=== PATIENT | male | born 1955 | race Hispanic/Latino ===

== ENCOUNTER 2016-07-30 21:12 | Inpatient (IN) | payer MEDICAID ==
[2016-07-30] MEDS ORDERED: Albuterol-Ipratrop 3 mg / 0.5 (3 ml) UD INH STA (21:40)
--- NOTE | 2016-07-30 21:56 | ED PDOC ---
HPI: General Adult Time Seen by Provider: 07/30/16 21:53 Chief Complaint (Nursing): GI Problem Chief Complaint (Provider): vomiting History Per: Patient (61 y/o male h/o CVA 7 years ago with 2 [facility] here for choking/vomiting and subsequently shortness of breath. Patient uses walker and bedside urinal and sister visits him at time.) Past Medical History Reviewed: Historical Data, Nursing Documentation, Vital Signs Vital Signs: Last Vital Signs Temp 99 F 07/30/16 21: Pulse 69 07/30/16 21:17 Resp 18 07/30/16 21:17 BP 150/76 07/30/16 21: Pulse Ox 96 07/30/16 21:56 - Medical History PMH: CVA (w/residual right-sided hemiparesis), Diabetes, HTN - Family History Family History: States: Hypertension - Home Medications Home Medications: Ambulatory Orders Medication Instructions Recorded Ondansetron [Zofran Tab] 4 mg PO Q8H #15 tab 03/17/16 ALPRAZolam [Xanax] 0.25 mg PO HS #14 tab 03/20/16 ARIPiprazole [Abilify] 5 mg PO DAILY #14 tab 03/20/16 Amoxicillin/Clavulanate [Augmentin 1 tab PO BID #9 tab 03/20/16 875 MG-125 MG] Citalopram [celEXA] 40 mg PO DAILY #30 tab 03/20/16 Dipyridamole [Persantine] 25 mg PO BID #60 tab 03/20/16 Fenofibrate [Tricor] 145 mg PO DAILY #30 tab 03/20/16 Insulin Detemir [Levemir] 30 units SC HS #30 vial 03/20/16 Lactobacillus Acidophilus [Bacid 1 cap PO BID #14 cap 03/20/16 Acidophilus] Metoprolol Succinate [Toprol XL] 25 mg PO BID #30 tab 03/20/16 OXcarbazepine [Trileptal] 600 mg PO BID #20 tab 03/20/16 Pantoprazole [Protonix EC Tab] 40 mg PO DAILY #14 ect 03/20/16 traZODone [Desyrel] 25 mg PO HS #14 tab 03/20/16 - Allergies Allergies/Adverse Reactions: Allergies Allergy/AdvReac Type Severity Reaction Status Date / Time FISH Allergy RASH Verified 07/30/16 21:22 Review of Systems ROS Statement: Except As Marked, All Systems Reviewed And Found Negative Respiratory: Positive for: Shortness of Breath Physical Exam - Reviewed Nursing Documentation Reviewed: Yes Vital Signs Reviewed: Yes - Physical Exam Appears: Positive for: Well, Non-toxic, No Acute Distress Head Exam: Positive for: ATRAUMATIC, NORMAL INSPECTION, NORMOCEPHALIC Skin: Positive for: Normal Color, Warm, DRY Eye Exam: Positive for: EOMI, Normal appearance, PERRL ENT: Positive for: Normal ENT Inspection Neck: Positive for: Normal, Painless ROM Cardiovascular/Chest: Positive for: Regular Rate, Rhythm Respiratory: Positive for: CNT, Normal Breath Sounds Gastrointestinal/Abdominal: Positive for: Normal Exam, Bowel Sounds, Soft Back: Positive for: Normal Inspection Extremity: Positive for: Normal ROM Neurologic/Psych: Positive for: Alert, Oriented - Laboratory Results Result Diagrams: 07/30/16 22:14 07/30/16 22:14 - ECG O2 Sat by Pulse Oximetry: 96 - Progress ED Course And Treament: Duoneb x 1 dose BC x 2 CXR: ? HAZY RIGHT UPPER BORDER UNASYN 3 GM IV X 1 DOSE D/W DR. MUELLER Disposition - Clinical Impression Clinical Impression: Aspiration pneumonia - Patient ED Disposition Is Patient to be Admitted: Yes - Disposition Disposition Time: 01:33 Condition: FAIR - Pt Status Changed To: Hospital Disposition Of: Observation
[2016-07-30] MEDS ORDERED: Ampicillin/Sulbactam 3 GM in Sodium Chloride 0.9% 100 ML IVPB ONE (22:01)
[2016-07-30 22:17] LABS: BASO # 0.1 K/uL (0.0-0.2); BASO % 0.9 % (0.0-2.0); EOS # 0.4 K/uL (0.0-0.7); EOS % 4.1 % (0.0-4.0); HEMATOCRIT 43.6 % (35.0-51.0); LYMPH # 1.2 K/uL (1.0-4.3); LYMPH % 10.8 % (20.0-40.0); MEAN CELL VOLUME 82.6 fl (80.0-94.0); MEAN CORPUSCULAR HEMOGLOBIN 27.2 pg (27.0-31.0); MONO # 0.8 K/uL (0.0-0.8); NEUT # 8.5 K/uL (1.8-7.0); NEUT % 77.2 % (50.0-75.0); NRBC % 0.1 % (0.0-0.0)
[2016-07-30 22:27] LABS: ALB/GLOB RATIO 1.7 (1.0-2.1); ALKALINE PHOSPHATASE 48 U/L (38-126); ALT/SGPT 30 U/L (21-72); AST/SGOT 14 U/L (17-59); BILIRUBIN,TOTAL 0.4 mg/dl (0.2-1.3); BLOOD UREA NITROGEN 24 mg/dl (9-20); CALCIUM 9.6 mg/dL (8.4-10.2); CARBON DIOXIDE 24 mmol/L (22-30); CHLORIDE 105 mmol/L (98-107); GFR AFRICAN-AMERICAN > 60; GLUCOSE,RANDOM 196 mg/dL (75-110); POTASSIUM 3.8 MMOL/L (3.6-5.0); SODIUM 143 mmol/l (132-148); TOTAL PROTEIN 7.2 G/DL (6.3-8.2)
[2016-07-30] MEDS ORDERED: Sodium Chloride 0.9% 1,000 ML IV STA (22:49)
[2016-07-31] MEDS ORDERED: Ampicillin/Sulbactam 3 GM in Sodium Chloride 0.9% 100 ML IVPB STA (04:06)
[2016-07-31 04:45] LABS: RBC URINE 3 /hpf (0-3); URINE BILIRUBIN NEGATIVE (NEGATIVE); URINE BLOOD NEGATIVE (NEGATIVE); URINE COLOR YELLOW (YELLOW); URINE GLUCOSE (UA) >=500 mg/dL (Normal); URINE KETONE NEGATIVE (NEGATIVE); URINE LEUKOCYTE ESTERASE NEG Leu/uL (Negative); URINE PROTEIN NEGATIVE (NEGATIVE); WBC URINE < 1 /hpf (0-5)
[2016-07-31] MEDS ORDERED: Albuterol-Ipratrop 3 mg / 0.5 (3 ml) UD INH PRN (05:42)
[2016-07-31] MEDS ORDERED: Potassium Ch 20mEq in D5-1/2NS 1,000 ML IV SCH (09:00)
[2016-07-31] MEDS ORDERED: Dextrose 50% SYRINGE Inj (50 ml) IV PRN (09:01)
[2016-07-31] MEDS ORDERED: Glucagon Recombinant 1 mg Inj IM PRN (09:01)
--- NOTE | 2016-07-31 10:12 | RAD ---
HISTORY: r/o pneumonia COMPARISON: 03/17/2016 FINDINGS: LUNGS: The lungs are well inflated and clear. PLEURA: No significant pleural effusion identified, no pneumothorax apparent. CARDIOVASCULAR: Normal. OSSEOUS STRUCTURES: No significant abnormalities. VISUALIZED UPPER ABDOMEN: Normal. OTHER FINDINGS: None. IMPRESSION: No active pulmonary disease.
[2016-07-31] MEDS: Enoxaparin 40 mg Syringe SC SCH (10:17)
[2016-07-31] MEDS: Insulin Regular 100 units/ml SC SCH ×4 (10:17→22:43)
[2016-07-31] MEDS: Pantoprazole 40 mg EC Tab PO SCH (10:18)
[2016-07-31] MEDS: Metoprolol Succinate 25 mg XL Tab PO SCH ×2 (10:18→19:57)
[2016-07-31] MEDS ORDERED: Ampicillin/Sulbactam 3 GM in Sodium Chloride 0.9% 100 ML IVPB SCH (13:00)
[2016-07-31] MEDS: Lactobacillus Acidophilus 500 MU Cap PO SCH ×2 (14:27→17:02)
--- NOTE | 2016-07-31 16:49 | RAD ---
HISTORY: r/o aspiration PNA COMPARISON: 07/30/2016 TECHNIQUE: Chest PA and lateral FINDINGS: LUNGS: There is interval development of consolidation in the right upper lobe. The left lung is clear. PLEURA: No significant pleural effusion identified. No pneumothorax apparent. CARDIOVASCULAR: Normal. OSSEOUS STRUCTURES: No significant abnormalities. VISUALIZED UPPER ABDOMEN: Normal. OTHER FINDINGS: None. IMPRESSION: Interval development of right upper lobe consolidation which in the appropriate clinical setting could represent aspiration pneumonitis. Follow-up to resolution is advised.
--- NOTE | 2016-07-31 18:10 | CARD ---
APPROVED REPORT EKG Measurement Heart [id number] [place] [id number] [id number] <Conclusion> Normal sinus rhythm Left anterior fascicular block Abnormal ECG
[2016-07-31] MEDS: Ampicillin/Sulbactam 3 GM in Sodium Chloride 0.9% 100 ML IVPB SCH (22:41)
[2016-07-31] MEDS: Insulin Detemir 100 Units/ml Inj SC SCH (22:44)
[2016-08-01] MEDS: Ampicillin/Sulbactam 3 GM in Sodium Chloride 0.9% 100 ML IVPB SCH ×3 (06:01→22:18)
[2016-08-01] MEDS: Insulin Regular 100 units/ml SC SCH ×4 (07:08→22:19)
[2016-08-01] MEDS: Lactobacillus Acidophilus 500 MU Cap PO SCH ×2 (09:10→16:24)
[2016-08-01] MEDS: Pantoprazole 40 mg EC Tab PO SCH (09:12)
[2016-08-01] MEDS: Enoxaparin 40 mg Syringe SC SCH (09:12)
[2016-08-01] MEDS: Metoprolol Succinate 25 mg XL Tab PO SCH ×2 (09:13→16:27)
--- NOTE | 2016-08-01 09:15 | PN ---
DATE: 08/01/2016 The patient seen and examined. Interim events noted. The patient feels okay. No chest pain, no cou gh, no shortness of breath, no fever. PHYSICAL EXAMINATION: GENERAL: The patient is in no acute distress. VITAL SIGNS: Stable. The patient is afebrile, pulse 78, respirations 16, blood pressure 136/78. HEART: S1, S2 normal, regular. LUNGS: Occasional right upper lobe crepitation, no rhonchi. ABDOMEN: Soft, nontender. EXTREMITIES: No calf swelling, no tenderness, no acute ischemia. CENTRAL NERVOUS SYSTEM: Essentially unchanged. DIAGNOSTIC DATA: Available diagnostic data reviewed. Chest x-ray shows right upper lobe pneumonia. Overall, the patient is clinically stable. The patient has aspiration pneumonia. PLAN: As ordered. Case and plan discussed with patient. Kaz Xiong MD cc: [id number] TT: 08/01/2016 09:14:24 Confirmation # [id number] Dictation # [id number] galileo
[2016-08-01] MEDS: Potassium Ch 20mEq in D5-1/2NS 1,000 ML IV SCH (15:29)
--- NOTE | 2016-08-01 16:31 | CP.PCM.HP ---
History of Present Illness - History of Present Illness History of Present Illness: Patient seen and examined at bedside with attending. 61M p/w episode of choking and vomiting while eating meal and development of subsequent shortness of breath. He reports at times this happens while eating, but not with the feeling of shortness of breath. He denies any associated viral prodrome of cough, fevers, chills, diarrhea, abdominal pain, or sick contacts. In addition, he has not experienced chest pain or palpitations. PMH: CVA(Rt sided deficits), DM, HTN Present on Admission - Present on Admission Any Indicators Present on Admission: Yes History of Uncontrolled Diabetes: Yes Review of Systems - Respiratory Respiratory: Dyspnea Past Patient History - Past Medical History & Family History Past Medical History?: Yes - Past Social History Smoking Status: Former Smoker - CARDIAC Hx Hypertension: Yes - PULMONARY Hx Respiratory Disorders: Yes - NEUROLOGICAL Hx Neurological Disorder: Yes HX Cerebrovascular Accident: Yes - HEENT Hx HEENT Problems: Yes - ENDOCRINE/METABOLIC Hx Diabetes Mellitus Type 2: Yes - MUSCULOSKELETAL/RHEUMATOLOGICAL Hx Falls: No Other/Comment: Right sided paralysis - PSYCHIATRIC Hx Substance Use: No - SURGICAL HISTORY Other/Comment: Hx G Tube removed s/p 3 days - ANESTHESIA Hx Anesthesia: Yes Hx Anesthesia Reactions: No Meds Allergies/Adverse Reactions: Allergies Allergy/AdvReac Type Severity Reaction Status Date / Time FISH Allergy RASH Verified 07/30/16 21:22 Physical Exam - Constitutional Appears: Well, Non-toxic, No Acute Distress - Head Exam Head Exam: ATRAUMATIC, NORMAL INSPECTION - Eye Exam Eye Exam: EOMI, PERRL - ENT Exam ENT Exam: Mucous Membranes Moist, Normal Exam - Neck Exam Neck exam: Positive for: Normal Inspection. Negative for: Lymphadenopathy - Respiratory Exam Respiratory Exam: Clear to Auscultation Bilateral, NORMAL BREATHING PATTERN. absent: Rales, Rhonchi, Wheezes - Cardiovascular Exam Cardiovascular Exam: REGULAR RHYTHM. absent: JVD - GI/Abdominal Exam GI & Abdominal Exam: Normal Bowel Sounds, Soft. absent: Tenderness - Extremities Exam Extremities exam: Positive for: normal capillary refill, pedal pulses present. Negative for: pedal edema Additional comments: Rt sided hemiparesis - Neurological Exam Neurological exam: Alert, Oriented x3 - Psychiatric Exam Psychiatric exam: Normal Affect, Normal Mood - Skin Skin Exam: Normal Color, Warm Results - Vital Signs Recent Vital Signs: Last Vital Signs Temp 36.7 C 08/01/16 09:00 Pulse 62 08/01/16 09:13 Resp 20 08/01/16 08:04 BP 127/71 08/01/16 09:13 Pulse Ox 94 L 08/01/16 08:04 - Labs Result Diagrams: 07/30/16 22:14 07/30/16 22:14 Labs: Laboratory Results - last 24 hr 07/31/16 07/31/16 08/01/16 21:23 21:45 03:32 POC Glucose (mg/dL) 227 H 245 H 148 H 08/01/16 08/01/16 06:05 11:01 POC Glucose (mg/dL) 109 187 H Assessment & Plan (1) Aspiration pneumonia Assessment and Plan: Afebrile, minimal leukocytosis, history of CVA and residual deficits concerning for aspiration risk. - CXR 2-view - Speech/Swallow Evaluation: Chopped, [place] Thick Liquids - Unasyn - Aspiration Precautions Status: Acute (2) DVT prophylaxis Assessment and Plan: Lovenox 40mg, SC, Daily Status: Acute (3) Diabetes Assessment and Plan: Chronic, stable. - Accu-checks ACHS - Hypoglycemic Bundle - MOD CHO - Resume home medications Status: Chronic (4) Hypertension Assessment and Plan: Chronic, stable. - Resume home medications Status: Chronic
[2016-08-01] MEDS: Insulin Detemir 100 Units/ml Inj SC SCH (22:19)
[2016-08-02] MEDS: Potassium Ch 20mEq in D5-1/2NS 1,000 ML IV SCH ×2 (02:38→09:06)
[2016-08-02] MEDS: Ampicillin/Sulbactam 3 GM in Sodium Chloride 0.9% 100 ML IVPB SCH ×3 (06:38→22:05)
[2016-08-02] MEDS: Insulin Regular 100 units/ml SC SCH ×4 (06:50→22:05)
[2016-08-02 08:14] LABS: HEMATOCRIT 39.2 % (35.0-51.0); MEAN CELL VOLUME 81.1 fl (80.0-94.0); MEAN CORPUSCULAR HEMOGLOBIN 27.8 pg (27.0-31.0); MEAN CORPUSCULAR HGB CONC 34.3 g/dL (33.0-37.0); RED CELL DISTRIBUTION WIDTH 15.1 % (11.5-14.5); WHITE BLOOD COUNT 7.3 K/uL (4.8-10.8)
[2016-08-02 08:15] LABS: ALB/GLOB RATIO 1.7 (1.0-2.1); ALKALINE PHOSPHATASE 35 U/L (38-126); ALT/SGPT 29 U/L (21-72); AST/SGOT 13 U/L (17-59); BILIRUBIN,TOTAL 0.4 mg/dl (0.2-1.3); BLOOD UREA NITROGEN 11 mg/dl (9-20); CALCIUM 8.7 mg/dL (8.4-10.2); CARBON DIOXIDE 27 mmol/L (22-30); CHLORIDE 106 mmol/L (98-107); GFR AFRICAN-AMERICAN > 60; GLUCOSE,RANDOM 109 mg/dL (75-110); POTASSIUM 3.8 MMOL/L (3.6-5.0); SODIUM 142 mmol/l (132-148); TOTAL PROTEIN 6.3 G/DL (6.3-8.2)
--- NOTE | 2016-08-02 08:23 | PN ---
DATE: 08/02/2016 The patient seen and examined. Interim events noted. The patient remains on regular medical floor. The patient feels much better. No chest pain, no shortness of breath, no coughing. PHYSICAL EXAMINATION: GENERAL: The patient ____ in no acute distress. VITAL SIGNS: Stable. HEART: S1, S2 normal, regular. LUNGS: Improved bilateral air exchange. No ____ rhonchi. ____ crepitations resolved. ABDOMEN: Soft, nontender. EXTREMITIES: No edema, no calf swelling, no tenderness, no acute ischemia. CENTRAL NERVOUS SYSTEM: Essentially unchanged. DIAGNOSTIC DATA: Available diagnostic data reviewed. Overall, patient is slowly improving. PLAN: As ordered. Kaz Xiong MD cc: [id number] TT: 08/02/2016 08:22:57 Confirmation # [id number] Dictation # [id number]
[2016-08-02] MEDS: Enoxaparin 40 mg Syringe SC SCH (08:27)
[2016-08-02] MEDS: Metoprolol Succinate 25 mg XL Tab PO SCH ×2 (08:28→16:11)
[2016-08-02] MEDS: Pantoprazole 40 mg EC Tab PO SCH (08:28)
[2016-08-02] MEDS: Lactobacillus Acidophilus 500 MU Cap PO SCH ×2 (08:37→16:10)
[2016-08-02] MEDS: Insulin Detemir 100 Units/ml Inj SC SCH (22:06)
[2016-08-03 06:13] LABS: HEMATOCRIT 40.3 % (35.0-51.0); MEAN CELL VOLUME 81.7 fl (80.0-94.0); MEAN CORPUSCULAR HEMOGLOBIN 27.7 pg (27.0-31.0); MEAN CORPUSCULAR HGB CONC 33.9 g/dL (33.0-37.0); RED CELL DISTRIBUTION WIDTH 14.7 % (11.5-14.5); WHITE BLOOD COUNT 7.8 K/uL (4.8-10.8)
[2016-08-03 06:29] LABS: ALB/GLOB RATIO 1.6 (1.0-2.1); ALKALINE PHOSPHATASE 36 U/L (38-126); ALT/SGPT 24 U/L (21-72); AST/SGOT 13 U/L (17-59); BILIRUBIN,TOTAL 0.4 mg/dl (0.2-1.3); BLOOD UREA NITROGEN 13 mg/dl (9-20); CALCIUM 8.5 mg/dL (8.4-10.2); CARBON DIOXIDE 26 mmol/L (22-30); CHLORIDE 109 mmol/L (98-107); GFR AFRICAN-AMERICAN > 60; GLUCOSE,RANDOM 99 mg/dL (75-110); POTASSIUM 3.7 MMOL/L (3.6-5.0); SODIUM 143 mmol/l (132-148); TOTAL PROTEIN 6.3 G/DL (6.3-8.2)
[2016-08-03] MEDS: Ampicillin/Sulbactam 3 GM in Sodium Chloride 0.9% 100 ML IVPB SCH ×3 (07:05→22:00)
[2016-08-03] MEDS: Insulin Regular 100 units/ml SC SCH ×4 (07:06→21:50)
--- NOTE | 2016-08-03 08:31 | HP ---
CHIEF COMPLAINT: Vomiting and coughing. HISTORY OF PRESENT ILLNESS: This is a 61-year-old male, known case of hypertension, diabetes, histor y of CVA with right hemiparesis, who had some swallowing difficulty and on the day of admission, the patient was coughing and was vomiting and apparently aspirated some material. The patient was charla t to Emergency Room and was admitted for further management. REVIEW OF SYSTEMS: Positive for cough, vomiting and difficulty in swallowing. Review of systems oth erwise is negative for headache, dizziness, syncope, loss of consciousness, chest pain, shortness of breath, abdominal pain, diarrhea, or constipation. Review of systems of all other organ system is un remarkable. PAST MEDICAL HISTORY: Significant for hypertension, diabetes, history of CVA with right hemiparesis. PAST SURGICAL HISTORY: Unremarkable. PERSONAL HISTORY: The patient is currently a nonsmoker, nondrinker, no substance abuse. Living at [facility] with [facility] home health. ALLERGIES: The patient is not allergic to any medications. MEDICATIONS: The patient is on multiple medications, which are as per reconciliation sheet which wer e reviewed and ordered. FAMILY HISTORY: Noncontributory. PHYSICAL EXAMINATION: GENERAL: well-built, well-nourished 61-year-old male in no acute distress. VITAL SIGNS: Temperature afebrile, pulse 88, respirations 18, blood pressure 136/____. HEENT: Pupils reacting to light. No JVD, no thyromegaly, no lymphadenopathy, no nystagmus. Normoce phalic, atraumatic skull. HEART: S1, S2 normal, regular. No significant murmur, gallop or rub is heard. LUNGS: Show good bilateral air exchange. No rales or rhonchi. ABDOMEN: Soft, nontender. DICTATION ENDS HERE. Kaz Xiong MD cc: [id number] TT: 08/01/2016 10:04:24 ne
[2016-08-03] MEDS: Enoxaparin 40 mg Syringe SC SCH ×2 (08:36→12:26)
[2016-08-03] MEDS: Metoprolol Succinate 25 mg XL Tab PO SCH ×2 (08:37→17:58)
[2016-08-03] MEDS: Pantoprazole 40 mg EC Tab PO SCH (08:37)
[2016-08-03 09:00] VITALS: RESP 20
[2016-08-03] MEDS: Lactobacillus Acidophilus 500 MU Cap PO SCH ×2 (09:14→18:08)
--- NOTE | 2016-08-03 09:16 | PN ---
DATE: 08/03/2016 The patient seen and examined. Interim events noted. Consults noted, appreciated. The patient mary jo ins on regular medical floor. The patient feels okay. No specific complaints. No chest pain, no sh ortness of breath. PHYSICAL EXAMINATION: GENERAL: The patient is in no acute distress. VITAL SIGNS: Stable. HEART: S1, S2 normal, regular. LUNGS: Good bilateral air entry. ABDOMEN: Soft, nontender. EXTREMITIES: No edema, no calf swelling, no tenderness, no acute ischemia. CENTRAL NERVOUS SYSTEM: Essentially unchanged. DIAGNOSTIC DATA: Available reviewed. Overall, patient is slowly improving. We will repeat the chest x-ray today to evaluate the pneumonia . PLAN: As ordered. Case and plan discussed with patient. Kaz Xiong MD cc: [id number] TT: 08/03/2016 09:15:27 Confirmation # [id number] Dictation # [id number]
--- NOTE | 2016-08-03 12:48 | RAD ---
PROCEDURE: Chest x-ray four views HISTORY: F/U pneumonia COMPARISON: 07/31/2016 TECHNIQUE: AP, lateral and bilateral oblique views of the chest FINDINGS: The ill-defined infiltrate in the mid to upper right lung, lateral aspect, on prior chest radiograph, has markedly improved. There is some residual opacity. No new infiltrate is seen elsewhere. It is not identifiable in the lateral projection. No evidence pleural effusion or pneumothorax. The heart is normal in size. There is no congestive change. No osseous abnormality is appreciated. IMPRESSION: Improving infiltrate mid to upper right lung compared to 07/28.
[2016-08-03] MEDS: Insulin Detemir 100 Units/ml Inj SC SCH (21:49)
[2016-08-04 00:06] VITALS: O2SAT 96
[2016-08-04] MEDS: Ampicillin/Sulbactam 3 GM in Sodium Chloride 0.9% 100 ML IVPB SCH (06:40)
[2016-08-04 07:29] LABS: HEMATOCRIT 42.1 % (35.0-51.0); MEAN CELL VOLUME 81.1 fl (80.0-94.0); MEAN CORPUSCULAR HEMOGLOBIN 27.5 pg (27.0-31.0); RED CELL DISTRIBUTION WIDTH 14.6 % (11.5-14.5); WHITE BLOOD COUNT 7.1 K/uL (4.8-10.8)
[2016-08-04] MEDS: Insulin Regular 100 units/ml SC SCH (07:30)
[2016-08-04 07:34] LABS: ALB/GLOB RATIO 1.6 (1.0-2.1); ALKALINE PHOSPHATASE 38 U/L (38-126); ALT/SGPT 33 U/L (21-72); AST/SGOT 14 U/L (17-59); BILIRUBIN,TOTAL 0.4 mg/dl (0.2-1.3); BLOOD UREA NITROGEN 12 mg/dl (9-20); CALCIUM 9.1 mg/dL (8.4-10.2); CARBON DIOXIDE 28 mmol/L (22-30); CHLORIDE 106 mmol/L (98-107); GFR AFRICAN-AMERICAN > 60; GLUCOSE,RANDOM 82 mg/dL (75-110); SODIUM 143 mmol/l (132-148); TOTAL PROTEIN 6.9 G/DL (6.3-8.2)
[2016-08-04 08:26] VITALS: BP 148/84; PULSE 54; TEMP 97.5
[2016-08-04] MEDS: Lactobacillus Acidophilus 500 MU Cap PO SCH (09:25)
[2016-08-04] MEDS: Enoxaparin 40 mg Syringe SC SCH (09:26)
[2016-08-04] MEDS: Pantoprazole 40 mg EC Tab PO SCH (09:27)
[2016-08-04] MEDS: Metoprolol Succinate 25 mg XL Tab PO SCH (09:27)
--- NOTE | 2016-08-04 16:16 | CP.PCM.PN ---
Subjective - Date & Time of Evaluation Date of Evaluation: 08/04/16 - Subjective Subjective: The patient seen and examined. Interim events noted. Consults noted, appreciated. The patient remains on regular medical floor. The patient feels okay. No specific complaints. No chest pain, no shortness of breath. PHYSICAL EXAMINATION: GENERAL: The patient is in no acute distress. VITAL SIGNS : Stable. HEART: S1, S2 normal, regular. LUNGS: Good bilateral air entry. ABDOMEN: Soft, nontender. EXTREMITIES: No edema, no calf swelling, no tenderness, no acute ischemia. CENTRAL NERVOUS SYSTEM: Essentially unchanged. DIagnostic data:Available diagnostic data reviewed, X-Ray improving. PLan: as ordered For possible D/C home today Objective - Vital Signs/Intake and Output Vital Signs (last 24 hours): Temp Pulse Resp BP Pulse Ox 97.5 F L 54 L 20 148/84 96 08/04/16 09:00 08/04/16 09:27 08/04/16 08:25 08/04/16 08:25 08/04/16 08:25 - Labs Labs: 08/04/16 05:30 08/04/16 05:30
== END 2016-08-04 13:34 | disposition home or self-care (01) | DRG 80 ==
LOC: H.ER 21:12 → H.ERHOLD 07-31 01:46 → H.MEDSURG1 07-31 04:54
PROVIDERS: ADMIT Internal Medicine; ATTEND Internal Medicine
DX: J69.0 Pneumonitis due to inhalation of food and vomit (principal); I69.351 Hemiplegia and hemiparesis following cerebral infarction affecting right dominant side; I10 Essential (primary) hypertension; Z91.013 Allergy to seafood; E11.9 Type 2 diabetes mellitus without complications

== ENCOUNTER 2016-11-21 16:34 | Inpatient (IN) | payer MEDICAID ==
[2016-11-21] MEDS ORDERED: Sodium Chloride 0.9% 1,000 ML IV STA (17:07)
[2016-11-21 17:34] LABS: VENOUS BLOOD GAS BASE EXCESS -0.2 mmol/L (0.0-2.0); VENOUS BLOOD GAS PCO2 31 mmHg (40-60); VENOUS BLOOD PH 7.47 (7.32-7.43)
[2016-11-21 17:37] LABS: BASO # 0.1 K/uL (0.0-0.2); BASO % 0.6 % (0.0-2.0); EOS # 0.2 K/uL (0.0-0.7); EOS % 0.9 % (0.0-4.0); LYMPH % 4.7 % (20.0-40.0); MEAN CELL VOLUME 81.9 fl (80.0-94.0); MEAN CORPUSCULAR HEMOGLOBIN 27.2 pg (27.0-31.0); MEAN CORPUSCULAR HGB CONC 33.2 g/dL (33.0-37.0); MEAN PLATELET VOLUME 7.9 fl (7.2-11.7); MONO # 1.3 K/uL (0.0-0.8); MONO % 6.3 % (0.0-10.0); NEUT # 18.1 K/uL (1.8-7.0); NEUT % 87.5 % (50.0-75.0); NRBC % 0.2 % (0.0-0.0); PLATELET COUNT 199 K/uL (130-400); WHITE BLOOD COUNT 20.7 K/uL (4.8-10.8)
[2016-11-21 17:42] LABS: ALB/GLOB RATIO 1.7 (1.0-2.1); ALKALINE PHOSPHATASE 64 U/L (38-126); ALT/SGPT 30 U/L (21-72); AST/SGOT 21 U/L (17-59); BILIRUBIN,TOTAL 0.7 mg/dl (0.2-1.3); BLOOD UREA NITROGEN 17 mg/dl (9-20); CALCIUM 9.1 mg/dL (8.4-10.2); CARBON DIOXIDE 21 mmol/L (22-30); CHLORIDE 108 mmol/L (98-107); GFR AFRICAN-AMERICAN > 60; GLUCOSE,RANDOM 185 mg/dL (75-110); POTASSIUM 3.8 MMOL/L (3.6-5.0); SODIUM 143 mmol/l (132-148); TOTAL PROTEIN 7.3 G/DL (6.3-8.2)
[2016-11-21 18:20] LABS: NEUTROPHIL 91 % (42-75); TOTAL CELLS COUNTED 100
--- NOTE | 2016-11-21 18:33 | ED PDOC ---
HPI: Male Pain Time Seen by Provider: 11/21/16 16:55 Chief Complaint (Nursing): Abdominal Pain Chief Complaint (Provider): Fever and hematuria History Per: Patient, Family (daughter) History/Exam Limitations: physical impairment (difficulty speaking because s/p stroke) Current Symptoms Are (Timing): Still Present Additional Complaint(s): HPI is limited because patient has difficulty speaking status-post stroke, and patient's daughter left the ED. Patient is a 61 y/o male with a past medical history of cerebrovascular accident, cardia arrhythmia, and hypertension, who presents to the ED complaining of a fever and hematuria. Patient is also complains of pain to buttock and right hemiparesis, but denies cough, abdominal pain, headache, or dysuria. PMD: Provider daisy AMOS Past Medical History Reviewed: Historical Data, Nursing Documentation Vital Signs: Last Vital Signs Temp 100.1 F H 11/21/16 18:26 Pulse 105 H 11/21/16 18:26 Resp 19 11/21/16 18:26 BP 132/67 11/21/16 18:26 Pulse Ox 98 11/21/16 18:26 - Medical History PMH: Cardia Arrhythmia, CVA (w/residual right-sided hemiparesis), Diabetes, HTN - Family History Family History: States: Hypertension - Social History Ex-Smoker (has not smoked in the last 12 months): Yes Alcohol: None Drugs: Denies - Home Medications Home Medications: Ambulatory Orders Medication Instructions Recorded ARIPiprazole [Abilify] 5 mg PO DAILY #14 tab 03/20/16 Citalopram [celEXA] 40 mg PO DAILY #30 tab 03/20/16 Insulin Detemir [Levemir] 30 units SC HS #30 vial 03/20/16 Lactobacillus Acidophilus [Bacid 1 cap PO BID #14 cap 03/20/16 Acidophilus] OXcarbazepine [Trileptal] 600 mg PO BID #20 tab 03/20/16 Pantoprazole [Protonix EC Tab] 40 mg PO DAILY #14 ect 03/20/16 traZODone [Desyrel] 25 mg PO HS #14 tab 03/20/16 ALPRAZolam [Xanax] 0.25 mg PO Q8 11/21/16 Aspirin/Dipyridamole [Aggrenox 1 tab PO DAILY 11/21/16 25-200 mg] Fenofibrate [Tricor] 1 tab PO DAILY 11/21/16 Metoprolol Tartrate [Lopressor] 25 mg PO DAILY 11/21/16 metFORMIN [glucOPHAGE] 500 mg PO BID 11/21/16 traZODone [Desyrel] 100 mg PO HS 11/21/16 Acetaminophen [Tylenol 325mg tab] 650 mg PO Q4 PRN tab 11/24/16 Albuterol/Ipratropium [Duoneb 3 3 ml INH RQ6 neb 11/24/16 mg/0.5 mg (3 ml) UD] Enoxaparin [Lovenox] 40 mg SC DAILY syr 11/24/16 cefTRIAXone 1 gm [Rocephin 1 gram 1 gm IVPB DAILY #7 bag 11/24/16 IVPB] - Allergies Allergies/Adverse Reactions: Allergies Allergy/AdvReac Type Severity Reaction Status Date / Time FISH Allergy RASH Verified 11/25/16 15:27 shellfish derived Allergy RASH Verified 11/25/16 15:27 Review of Systems ROS Statement: Except As Marked, All Systems Reviewed And Found Negative Constitutional: Positive for: Fever Respiratory: Negative for: Cough Gastrointestinal: Negative for: Abdominal Pain Genitourinary Male: Positive for: Hematuria. Negative for: Dysuria Musculoskeletal: Positive for: Other (buttock pain) Neurological: Positive for: Numbness (right hemiparesis), Change in Speech ( difficulty speaking status-post cerebrovascular accident). Negative for: Headache Physical Exam - Reviewed Nursing Documentation Reviewed: Yes Vital Signs Reviewed: Yes - Physical Exam Appears: Positive for: No Acute Distress Head Exam: Positive for: ATRAUMATIC, NORMOCEPHALIC Skin: Positive for: Normal Color, Warm, Dry Eye Exam: Positive for: Normal appearance, EOMI, PERRL Neck: Positive for: Normal, Painless ROM, Supple Cardiovascular/Chest: Positive for: Tachycardia. Negative for: Murmur Respiratory: Positive for: Crackles (Left basilar crackles) Gastrointestinal/Abdominal: Positive for: Normal Exam, Soft Back: Positive for: Other (stage 2 sacral decubitus with no discharge or fluctuance). Negative for: L CVA Tenderness, R CVA Tenderness, Vertebral Tenderness Extremity: Positive for: Normal ROM. Negative for: Tenderness, Pedal Edema Neurologic/Psych: Positive for: Alert, Oriented (x3) - Laboratory Results Result Diagrams: 11/24/16 04:20 11/24/16 04:20 - ECG O2 Sat by Pulse Oximetry: 98 (RA) Pulse Ox Interpretation: Normal Medical Decision Making Medical Decision Making: Time: 17:05 Initial Impression: Fever, UTI, Pneumonia Initial Plan: -VBG Shock Panel -EKG -Labs -ED Urine Dipstick -PTT -Chest X-Ray -Sodium Chloride 0.9 % 1000ml, IV 1000 mls/hr -Acetaminophen 650mg TN -Blood culture -Urine culture -Urinalysis -Influenza A B -Reevaluation Scribe Attestation: Documented by Edith Romero, acting as a scribe for Zaynab Murillo MD Provider Scribe Attestation: All medical record entries made by the Scribe were at my direction and personally dictated by me. I have reviewed the chart and agree that the record accurately reflects my personal performance of the history, physical exam, medical decision making, and the department Disposition - Clinical Impression Clinical Impression: UTI (urinary tract infection), Severe sepsis - Disposition Disposition Time: 18:59 Condition: GUARDED - Pt Status Changed To: Hospital Disposition Of: Inpatient - Admit Certification Admit to Inpatient:: After my assessment, the patient will require hospitalization for at least two midnights. This is because of the severity of symptoms shown, intensity of services needed, and/or the medical risk in this patient being treated as an outpatient. - POA Present On Arrival: None
[2016-11-21 18:35] LABS: RBC URINE 1529 /hpf (0-3); URINE BILIRUBIN NEGATIVE (NEGATIVE); URINE BLOOD LARGE (NEGATIVE); URINE COLOR AMBER (YELLOW); URINE GLUCOSE (UA) 150 mg/dL (Normal); URINE KETONE TRACE mg/dL (NEGATIVE); URINE LEUKOCYTE ESTERASE MOD Leu/uL (Negative); URINE PROTEIN >=500 mg/dL (NEGATIVE); WBC CLUMPS MANY /hpf; WBC URINE 1190 /hpf (0-5)
[2016-11-21] MEDS ORDERED: cefTRIAXone (Rocephin) 1 gm Inj ONE (19:10)
[2016-11-21] MEDS: Insulin Detemir 100 Units/ml Inj SC SCH (23:28)
[2016-11-22] MEDS: Albuterol-Ipratrop 3 mg / 0.5 (3 ml) UD INH SCH ×4 (01:00→19:30)
[2016-11-22] MEDS ORDERED: Influenza Vaccine 18yr & older 0.5 ML/45 MCG SYR IM ONE (05:26)
[2016-11-22 07:05] LABS: HEMATOCRIT 41.9 % (35.0-51.0); MEAN CELL VOLUME 82.3 fl (80.0-94.0); MEAN CORPUSCULAR HEMOGLOBIN 27.5 pg (27.0-31.0); MEAN CORPUSCULAR HGB CONC 33.4 g/dL (33.0-37.0); RED CELL DISTRIBUTION WIDTH 14.8 % (11.5-14.5); WHITE BLOOD COUNT 19.9 K/uL (4.8-10.8)
[2016-11-22 07:20] LABS: ALB/GLOB RATIO 1.7 (1.0-2.1); ALKALINE PHOSPHATASE 49 U/L (38-126); ALT/SGPT 28 U/L (21-72); AST/SGOT 13 U/L (17-59); BILIRUBIN,TOTAL 1.2 mg/dl (0.2-1.3); BLOOD UREA NITROGEN 19 mg/dl (9-20); CALCIUM 8.6 mg/dL (8.4-10.2); CARBON DIOXIDE 23 mmol/L (22-30); CHLORIDE 104 mmol/L (98-107); CHOLESTEROL 128 mg/dL (0-199); GFR AFRICAN-AMERICAN > 60; GLUCOSE,RANDOM 254 mg/dL (75-110); POTASSIUM 3.8 MMOL/L (3.6-5.0); SODIUM 141 mmol/l (132-148); TOTAL PROTEIN 6.6 G/DL (6.3-8.2)
[2016-11-22 07:50] LABS: THYROID STIMULATING HORMONE 1.55 mIU/ML (0.46-4.68)
--- NOTE | 2016-11-22 09:26 | RAD ---
HISTORY: Fever COMPARISON: 08/03/2016 FINDINGS: LUNGS: No focal infiltrate is seen. There appears to be resolution of a small area patchy alveolar density in the right lung from the prior study. Trachea is midline. PLEURA: No significant pleural effusion identified, no pneumothorax apparent. CARDIOVASCULAR: Heart is not enlarged. Aorta is unchanged. OSSEOUS STRUCTURES: No significant abnormalities. VISUALIZED UPPER ABDOMEN: Normal. OTHER FINDINGS: None. IMPRESSION: No active disease.
[2016-11-22] MEDS: Enoxaparin 40 mg Syringe SC SCH (09:44)
[2016-11-22] MEDS: Aspirin-Dipyridamole 200-25 mg ER Cap PO SCH (09:45)
[2016-11-22] MEDS: Pantoprazole 40 mg EC Tab PO SCH (09:46)
[2016-11-22] MEDS: Lactobacillus Acidophilus 500 MU Cap PO SCH ×2 (09:51→17:14)
[2016-11-22] MEDS: Insulin Lispro (humaLOG) 100 Units/ml Inj SC SCH ×4 (09:57→22:08)
--- NOTE | 2016-11-22 20:31 | HP ---
CHIEF COMPLAINT: Feeling generalized weakness, fever, lower abdominal pain, and burning on urination. HISTORY OF PRESENT ILLNESS: This is a 61-year-old male, known case of diabetes, hypertension, status post CVA with right hemiparesis, had multiple admissions to this institution in the past for various medical problems. He was having high fever, feeling weak, fatigued, tired, and also having lower abdominal and urinary pain, which did not improve, so the patient was brought to the emergency room and was found to have urinary tract infection . REVIEW OF SYSTEMS: Positive for generalized malaise, weakness, fatigue, tired, fever, lower abdominal pain, and urinary burning. Review of system otherwise is negative for headache, dizziness, syncope, loss of consciousness, chest pain, shortness of breath, nausea, vomiting, diarrhea, constipation, any new joint or extremity pain. Review of systems of all other organ system is unremarkable. PAST MEDICAL HISTORY: Significant for diabetes, hypertension, CVA with right hemiparesis. PAST SURGICAL HISTORY: Unremarkable. PERSONAL HISTORY: Patient is currently nonsmoker, nondrinker, no substance abuse, although the patient does have a history of smoking in the past. FAMILY HISTORY: Noncontributory. MEDICATIONS: Patient is on multiple medication, which is as per reconciliation sheet, which was reviewed and ordered. ALLERGIES: THE PATIENT IS ALLERGIC TO FISH. PHYSICAL EXAMINATION: GENERAL: Well built, well nourished, 61-year-old male, in no acute distress. VITAL SIGNS: Temperature maximum was up to 102.8, pulse is 80, respirations 18, blood pressure 136/76. HEENT: Pupils are reacting to light. Normocephalic and atraumatic skull. NECK: No JVD. No thyromegaly. No lymphadenopathy. No nystagmus. HEART: S1 and S2, normal and regular. No significant murmur, gallop, or rub is heard. LUNGS: Shows good bilateral air exchange. No rales or rhonchi. ABDOMEN: Soft, nontender. No organomegaly. No fluid. Bowel sounds are present. EXTERNAL GENITALIA: Appropriate for patient's age. Stool for occult blood is negative. EXTREMITIES: No edema. No calf swelling. No tenderness. No acute ischemia. CENTRAL NERVOUS SYSTEM: Patient is alert, awake, oriented. Patient is status post CVA with right hemiparesis. There is no sign of any acute new neurological signs or deficits. DIAGNOSTIC DATA: Available diagnostic data reviewed. WBC count is 20,000. Urinalysis is consistent with urinary tract infection. Accu-Cheks are slightly high. IMPRESSION: Sepsis secondary to urinary tract infection, type 2 diabetes with hyperglycemia, hypertension, status post cerebrovascular accident with right hemiparesis. PLAN: As ordered. Case and plan discussed with the patient. Kaz Xiong MD
[2016-11-22] MEDS: Insulin Detemir 100 Units/ml Inj SC SCH (22:09)
[2016-11-23] MEDS: Albuterol-Ipratrop 3 mg / 0.5 (3 ml) UD INH SCH ×4 (01:07→19:02)
[2016-11-23 05:26] LABS: HEMATOCRIT 40.4 % (35.0-51.0); MEAN CORPUSCULAR HGB CONC 32.5 g/dL (33.0-37.0); RED CELL DISTRIBUTION WIDTH 15.2 % (11.5-14.5); WHITE BLOOD COUNT 16.2 K/uL (4.8-10.8)
[2016-11-23 05:46] LABS: ALB/GLOB RATIO 1.5 (1.0-2.1); ALKALINE PHOSPHATASE 52 U/L (38-126); ALT/SGPT 22 U/L (21-72); AST/SGOT 11 U/L (17-59); BILIRUBIN,TOTAL 0.7 mg/dl (0.2-1.3); BLOOD UREA NITROGEN 19 mg/dl (9-20); CALCIUM 8.7 mg/dL (8.4-10.2); CARBON DIOXIDE 23 mmol/L (22-30); CHLORIDE 106 mmol/L (98-107); GFR AFRICAN-AMERICAN > 60; GLUCOSE,RANDOM 268 mg/dL (75-110); POTASSIUM 3.7 MMOL/L (3.6-5.0); SODIUM 142 mmol/l (132-148); TOTAL PROTEIN 6.5 G/DL (6.3-8.2)
[2016-11-23] MEDS: Insulin Lispro (humaLOG) 100 Units/ml Inj SC SCH ×4 (07:01→21:45)
[2016-11-23] MEDS: Lactobacillus Acidophilus 500 MU Cap PO SCH (09:28)
[2016-11-23] MEDS: Pantoprazole 40 mg EC Tab PO SCH (09:30)
[2016-11-23] MEDS: Aspirin-Dipyridamole 200-25 mg ER Cap PO SCH (09:30)
[2016-11-23] MEDS: Enoxaparin 40 mg Syringe SC SCH (09:31)
[2016-11-23] MEDS ORDERED: Sodium Chloride 3% for Inhalation 4 ML VIAL.NEB IH PRN (09:53)
--- NOTE | 2016-11-23 10:51 | CARD ---
APPROVED REPORT EKG Measurement Heart [id number] [place] [id number] <Conclusion> Sinus tachycardia Possible Left atrial enlargement Left anterior fascicular block Left ventricular hypertrophy Cannot rule out Septal infarct, age undetermined Abnormal ECG
--- NOTE | 2016-11-23 13:35 | PN ---
DATE: 11/23/2016 SUBJECTIVE: Patient is seen and examined. Interim events noted. Patient remains in Progressive Care Unit with telemetry monitoring. Patient feels a little better. No urinary complaint. No chest pain. No shortness of breath. PHYSICAL EXAMINATION: GENERAL: Patient is in no acute distress. VITAL SIGNS: Stable. HEART: S1 and S2, normal and regular. LUNGS: Good bilateral air entry. ABDOMEN: Soft, nontender. EXTREMITIES: No edema. No calf swelling. No tenderness. No acute ischemia. CENTRAL NERVOUS SYSTEM: Essentially unchanged. Patient is status post CVA with right hemiplegia. ASSESSMENT AND PLAN: Overall, patient is medically stable and improved. Urine culture shows more than 100,000 of Gram-negative bacteria, but ID and sensitivity is still pending. Plan as ordered. Kaz Xiong MD
[2016-11-23] MEDS: Insulin Detemir 100 Units/ml Inj SC SCH (21:42)
[2016-11-24] MEDS: Albuterol-Ipratrop 3 mg / 0.5 (3 ml) UD INH SCH ×4 (01:01→19:30)
[2016-11-24 05:44] LABS: HEMATOCRIT 37.2 % (35.0-51.0); MEAN CELL VOLUME 82.2 fl (80.0-94.0); MEAN CORPUSCULAR HEMOGLOBIN 27.9 pg (27.0-31.0); RED CELL DISTRIBUTION WIDTH 14.7 % (11.5-14.5); WHITE BLOOD COUNT 10.6 K/uL (4.8-10.8)
[2016-11-24 06:27] LABS: BLOOD UREA NITROGEN 27 mg/dl (9-20); GFR AFRICAN-AMERICAN > 60; GLUCOSE,RANDOM 265 mg/dL (75-110)
[2016-11-24 06:28] LABS: ALKALINE PHOSPHATASE 53 U/L (38-126); ALT/SGPT 21 U/L (21-72); AST/SGOT 11 U/L (17-59); BILIRUBIN,TOTAL 0.4 mg/dl (0.2-1.3); CALCIUM 9.4 mg/dL (8.4-10.2); CARBON DIOXIDE 27 mmol/L (22-30); CHLORIDE 105 mmol/L (98-107); POTASSIUM 4.1 MMOL/L (3.6-5.0); SODIUM 145 mmol/l (132-148); TOTAL PROTEIN 6.5 G/DL (6.3-8.2)
[2016-11-24 06:30] LABS: ALB/GLOB RATIO 1.4 (1.0-2.1)
[2016-11-24] MEDS: Insulin Lispro (humaLOG) 100 Units/ml Inj SC SCH ×4 (06:58→22:37)
--- NOTE | 2016-11-24 08:20 | CP.PCM.PN ---
Subjective - Date & Time of Evaluation Date of Evaluation: 11/24/16 Time of Evaluation: 08:18 - Subjective Subjective: 61 YO M seen at bedside. Denies any overnight events. Appears to be doing well. Patient has remained afebrile overnight. No overnight events reported. Objective - Vital Signs/Intake and Output Vital Signs (last 24 hours): Temp Pulse Resp BP Pulse Ox 97.8 F 81 16 117/66 97 11/24/16 05:00 11/24/16 05:00 11/24/16 05:00 11/24/16 05:00 11/24/16 05:00 - Medications Medications: Current Medications Acetaminophen (Tylenol 325mg Tab) 650 mg PO Q4 PRN PRN Reason: Fever >100.4 F Last Admin: 11/22/16 00:35 Dose: 650 mg Albuterol/Ipratropium (Duoneb 3 Mg/0.5 Mg (3 Ml) Ud) 3 ml INH RQ6 [facility] Last Admin: 11/24/16 07:29 Dose: 3 ml Alprazolam (Xanax) 0.25 mg PO Q8 [facility] Stop: 11/29/16 01:01 Last Admin: 11/24/16 01:03 Dose: 0.25 mg Aripiprazole (Abilify) 5 mg PO DAILY [facility] Last Admin: 11/23/16 09:30 Dose: 5 mg Citalopram Hydrobromide (Celexa) 40 mg PO DAILY [facility] Last Admin: 11/23/16 09:30 Dose: 40 mg Dipyridamole/Aspirin (Aggrenox 25-200 Mg) 1 ea PO DAILY [facility] Last Admin: 11/23/16 09:30 Dose: 1 ea Enoxaparin Sodium (Lovenox) 40 mg SC DAILY [facility] PRN Reason: Protocol Last Admin: 11/23/16 09:31 Dose: 40 mg Fenofibrate (Tricor) 145 mg PO DAILY [facility] Last Admin: 11/23/16 09:28 Dose: 145 mg Ceftriaxone Sodium 1 gm/ (Sodium Chloride) 100 mls @ 100 mls/hr IVPB DAILY [facility] PRN Reason: Protocol Last Admin: 11/23/16 09:30 Dose: 100 mls/hr Insulin Detemir (Levemir) 30 units SC HS [facility] Last Admin: 11/23/16 21:42 Dose: 30 units Insulin Human Lispro (Humalog) 0 units SC [facility] PRN Reason: Protocol Last Admin: 11/24/16 06:58 Dose: 3 unit Lactobacillus Acidophilus (Bacid Acidophilus) 1 cap PO BID [facility] Last Admin: 11/23/16 09:28 Dose: 1 cap Metformin HCl (Glucophage) 1,000 mg PO BID [facility] Metoprolol Tartrate (Lopressor) 25 mg PO DAILY [facility] Last Admin: 11/23/16 09:31 Dose: 25 mg Oxcarbazepine (Trileptal) 600 mg PO BID [facility] Last Admin: 11/23/16 17:51 Dose: 600 mg Pantoprazole Sodium (Protonix Ec Tab) 40 mg PO DAILY [facility] Last Admin: 11/23/16 09:30 Dose: 40 mg Trazodone HCl (Desyrel) 100 mg PO HS [facility] Last Admin: 11/23/16 21:42 Dose: 100 mg - Labs Labs: 11/24/16 04:20 11/24/16 04:20 PT 12.1 Seconds (9.8-13.1) 11/21/16 17:20 INR 1.1 (0.9-1.2) 11/21/16 17:20 APTT 28.0 Seconds (25.6-37.1) 11/21/16 17:20 - Constitutional Appears: No Acute Distress - Head Exam Head Exam: ATRAUMATIC, NORMOCEPHALIC - Respiratory Exam Respiratory Exam: Clear to Ausculation Bilateral, NORMAL BREATHING PATTERN. absent: Wheezes - Cardiovascular Exam Cardiovascular Exam: REGULAR RHYTHM, +S1, +S2 - GI/Abdominal Exam GI & Abdominal Exam: Soft, Normal Bowel Sounds. absent: Tenderness - Extremities Exam Extremities Exam: Full ROM - Neurological Exam Neurological Exam: Alert, Awake, CN II-XII Intact - Skin Skin Exam: Normal Color, Warm Assessment and Plan - Assessment and Plan (Free Text) Assessment: 1) UTI - Urine culture: E coli - No Blood culture growth in 48 hours - WBC trending down - Afebrile - Ceftriaxone - PT/OT 2) HTN - Metroprolol 3) Hyperlipidemia Tricor 4) DM2 - Metformin - Sliding scale 5) DVT prophylaxis -Lovenox
[2016-11-24] MEDS: Enoxaparin 40 mg Syringe SC SCH (08:48)
[2016-11-24] MEDS: Aspirin-Dipyridamole 200-25 mg ER Cap PO SCH (08:57)
[2016-11-24] MEDS: Pantoprazole 40 mg EC Tab PO SCH (08:57)
[2016-11-24] MEDS: Lactobacillus Acidophilus 500 MU Cap PO SCH ×2 (08:59→18:44)
--- NOTE | 2016-11-24 14:14 | CP.PCM.PCO ---
Assessment & Plan - Assessment and Plan (Free Text) Assessment: patient will require 7 days of Rocephin 1gm ivpb daily for E-coli UTI
[2016-11-24] MEDS: Insulin Detemir 100 Units/ml Inj SC SCH (22:38)
[2016-11-25 00:14] VITALS: RESP 20
[2016-11-25] MEDS: Albuterol-Ipratrop 3 mg / 0.5 (3 ml) UD INH SCH ×3 (01:54→13:08)
[2016-11-25] MEDS: Aspirin-Dipyridamole 200-25 mg ER Cap PO SCH (09:19)
[2016-11-25] MEDS: Pantoprazole 40 mg EC Tab PO SCH (09:21)
[2016-11-25] MEDS: Enoxaparin 40 mg Syringe SC SCH (09:21)
[2016-11-25] MEDS: Lactobacillus Acidophilus 500 MU Cap PO SCH (09:25)
[2016-11-25] MEDS: Insulin Lispro (humaLOG) 100 Units/ml Inj SC SCH ×2 (09:26→12:26)
--- NOTE | 2016-11-25 10:34 | PQF GENQUE ---
Dr. Xiong, Is Pneumonia ruled in or is Pneumonia ruled out? If Pneumonia is ruled in please specify the type: i.e. Aspiration pneumonia Please document specific aspirate (food, liquids, etc.) [place] (please indicate specific cause) Please indicate if this is postprocedural Bacterial (specify organism) Bronchopneumonia (specify organism) Interstitual pneumonia RSV pneumonia Viral pneumonia Other pneumonia (specify organism or type) Clinically unable to determine Unknown Note: Probable and suspected conditions can be coded as if they exist if still documented at the time of discharge. 3. Please specify the organism causing the pneumonia if known after the work up is completed Note: CAP, HAP, and HCAP indicate where the pneumonia was acquired, not a specific type. ER draft note: Initial Impression: Fever, UTI, Pneumonia 11/22 CXR: Impression : No active disease. Ceftriaxone IV This form is a permanent part of the medical record Clarification of your documentation is requested to better reflect the severity of illness and intensity of treatment of your patient. Indicators present [] Specify: [] [] Specify: [] [] Specify: [] [] Specify: [] Location in the medical record that reflects the above clinical findings: [] Treatment Provided: [] PHYSICIAN'S RESPONSE Based on your medical judgment of the clinical indicators outlined above please clarify the following: [] Practitioner response [] If unable to determine, please check the box, sign and date. Present On Admission (POA) Indicator: [] Present at the time of admission [] Not present at the time of admission [] Clinically Undetermined In responding to this query, please exercise your independent professional judgment. The fact that a question is asked does not imply that any particular answer is desired or expected. Thank you for your clarification on this documentation. If you have any questions please call. * Thank you, Socorro Buck RN ext. #[phone]:Roxana Katz RN MTDD
--- NOTE | 2016-11-25 10:46 | PQF GENQUE ---
Dr. Xiong, Is the dx. of Sepsis ruled in or Sepsis ruled out? OR: Other explanation of clinical finding ER Draft note: Initial Impression:Fever, UTI, Pneumonia H and P: Impression:Sepsis secondary to UTI , type 2 DM with Hyperglycemia, Hypertension, S/P CVA with right hemiparesis. 11/23 Draft Attending Progress Note: the Diagnosis of Sepsis is dropped Temp:102.8->100.1 Pulse:124->105 WBC: 20.7 Urine culture: E-Coli This form is a permanent part of the medical record Clarification of your documentation is requested to better reflect the severity of illness and intensity of treatment of your patient. Indicators present [] Specify: [] [] Specify: [] [] Specify: [] [] Specify: [] Location in the medical record that reflects the above clinical findings: [] Treatment Provided: [] PHYSICIAN'S RESPONSE Based on your medical judgment of the clinical indicators outlined above please clarify the following: [] Practitioner response [] If unable to determine, please check the box, sign and date. Present On Admission (POA) Indicator: [] Present at the time of admission [] Not present at the time of admission [] Clinically Undetermined In responding to this query, please exercise your independent professional judgment. The fact that a question is asked does not imply that any particular answer is desired or expected. Thank you for your clarification on this documentation. If you have any questions please call. * Thank you, Socorro Buck RN ext. #[phone]:Roxana YODER
[2016-11-25 12:28] VITALS: BP 118/64; PULSE 79; TEMP 98.7
--- NOTE | 2016-11-25 12:53 | CP.PCM.DIS ---
Provider - Provider Date of Admission: 11/21/16 18:59 Attending physician: Kaz Xiong MD Time Spent in preparation of Discharge (in minutes): 30 Diagnosis - Discharge Diagnosis (1) UTI (urinary tract infection) Status: Acute Hospital Course - Lab Results Lab Results: Micro Results 11/21/16 17:20 Blood Blood Culture - Preliminary NO GROWTH AFTER 3 DAYS 11/21/16 18:08 Urine Urine Culture - Final Escherichia Coli Most Recent Lab Values WBC 10.6 K/uL (4.8-10.8) 11/24/16 04:20 RBC 4.52 Mil/uL (4.40-5.90) 11/24/16 04:20 Hgb 12.6 g/dL (12.0-18.0) 11/24/16 04:20 Hct 37.2 % (35.0-51.0) 11/24/16 04:20 MCV 82.2 fl (80.0-94.0) 11/24/16 04:20 MCH 27.9 pg (27.0-31.0) 11/24/16 04:20 MCHC 34.0 g/dL (33.0-37.0) 11/24/16 04:20 RDW 14.7 % (11.5-14.5) H 11/24/16 04:20 Plt Count 197 K/uL (130-400) 11/24/16 04:20 MPV 7.9 fl (7.2-11.7) 11/21/16 17:20 Neut % (Auto) 87.5 % (50.0-75.0) H 11/21/16 17:20 Lymph % (Auto) 4.7 % (20.0-40.0) L 11/21/16 17:20 [place] % (Auto) 6.3 % (0.0-10.0) 11/21/16 17:20 Eos % (Auto) 0.9 % (0.0-4.0) 11/21/16 17:20 Baso % (Auto) 0.6 % (0.0-2.0) 11/21/16 17:20 Neut # 18.1 K/uL (1.8-7.0) H 11/21/16 17:20 Lymph # 1.0 K/uL (1.0-4.3) 11/21/16 17:20 [place] # 1.3 K/uL (0.0-0.8) H 11/21/16 17:20 Eos # 0.2 K/uL (0.0-0.7) 11/21/16 17:20 Baso # 0.1 K/uL (0.0-0.2) 11/21/16 17:20 Neutrophils % (Manual) 91 % (42-75) H 11/21/16 17:20 Lymphocytes % (Manual) 4 % (20-50) L 11/21/16 17:20 Monocytes % (Manual) 5 % (0-10) 11/21/16 17:20 Platelet Estimate Normal (NORMAL) 11/21/16: RBC Morphology Normal (NORMAL) 11/21/16:20 PT 12.1 Seconds (9.8-13.1) 11/21/16:20 INR 1.1 (0.9-1.2) 11/21/16:20 APTT 28.0 Seconds (25.6-37.1) 11/21/16 17:20 pO2 49 mm/Hg (30-55) 11/21/16 17:25 VBG pH 7.47 (7.32-7.43) H 11/21/16 17:25 VBG pCO2 31 mmHg (40-60) L 11/21/16 17:25 VBG HCO3 24.5 mmol/L 11/21/16 17:25 VBG Total CO2 23.6 mmol/L (22-28) 11/21/16 17:25 VBG O2 Sat (Calc) 92.7 % (40-65) H 11/21/16 17:25 VBG Base Excess -0.2 mmol/L (0.0-2.0) L 11/21/16 17:25 VBG Potassium 3.7 mmol/L (3.6-5.2) 11/21/16 17:25 Sodium 137.0 mmol/L (132-148) 11/21/16 17:25 Chloride 104.0 mmol/L (98-107) 11/21/16 17:25 Glucose 211 mg/dL (75-110) H 11/21/16 17:25 Lactate 1.4 mmol/L (0.7-2.1) 11/21/16 17:25 FiO2 21.0 % 11/21/16 17:25 Sodium 145 mmol/l (132-148) 11/24/16 04:20 Potassium 4.1 MMOL/L (3.6-5.0) 11/24/16 04:20 Chloride 105 mmol/L (98-107) 11/24/16 04:20 Carbon Dioxide 27 mmol/L (22-30) 11/24/16 04:20 Anion Gap 17 (10-20) 11/24/16 04:20 BUN 27 mg/dl (9-20) H 11/24/16 04:20 Creatinine 1.1 mg/dL (0.8-1.5) 11/24/16 04:20 Est GFR ( Amer) > 60 11/24/16 04:20 Est GFR (Non-Af Amer) > 60 11/24/16 04:20 POC Glucose (mg/dL) 226 mg/dL (65-110) H 11/25/16 12:13 Random Glucose 265 mg/dL (75-110) H 11/24/16 04:20 Calcium 9.4 mg/dL (8.4-10.2) 11/24/16 04:20 Total Bilirubin 0.4 mg/dl (0.2-1.3) 11/24/16 04:20 AST 11 U/L (17-59) L 11/24/16 04:20 ALT 21 U/L (21-72) 11/24/16 04:20 Alkaline Phosphatase 53 U/L (38-126) 11/24/16 04:20 Total Protein 6.5 G/DL (6.3-8.2) 11/24/16 04:20 Albumin 3.7 g/dL (3.5-5.0) 11/24/16 04:20 Globulin 2.8 gm/dL (2.2-3.9) 11/24/16 04:20 Albumin/Globulin Ratio 1.4 (1.0-2.1) 11/24/16 04:20 Triglycerides 113 mg/DL (0-149) 11/22/16 06:00 Cholesterol 128 mg/dL (0-199) 11/22/16 06:00 LDL Cholesterol Direct 79 mg/dL (0-129) 11/22/16 06:00 HDL Cholesterol 33 MG/DL (30-70) 11/22/16 06:00 Vitamin B12 703 pg/mL (239-931) 11/22/16 06:00 Free T4 0.96 ng/dL (0.78-2.19) 11/22/16 06:00 TSH 3rd Generation 1.55 mIU/ML (0.46-4.68) 11/22/16 06:00 Venous Blood Potassium 3.7 mmol/L (3.6-5.2) 11/21/16 17:25 Urine Color Yenny (YELLOW) 11/21/16 18:08 Urine Clarity Turbid (Clear) 11/21/16 18:08 Urine pH 7.0 (5.0-8.0) 11/21/16 18:08 Ur Specific [place] 1.024 (1.003-1.030) 11/21/16 18:08 Urine Protein >=500 mg/dL (NEGATIVE) 11/21/16 18:08 Urine Glucose (UA) 150 mg/dL (Normal) 11/21/16 18:08 Urine Ketones Trace mg/dL (NEGATIVE) 11/21/16 18:08 Urine Blood Large (NEGATIVE) 11/21/16 18:08 Urine Nitrate Negative (NEGATIVE) 11/21/16 18:08 Urine Bilirubin Negative (NEGATIVE) 11/21/16 18:08 Urine Urobilinogen 4.0 mg/dL (0.2-1.0) 11/21/16 18:08 Ur Leukocyte Esterase Mod [place]/uL (Negative) 11/21/16 18:08 Urine RBC (Auto) 1529 /hpf (0-3) H 11/21/16 18:08 Urine WBC Clumps (Auto) Many /hpf (NONE) H 11/21/16 18:08 Urine Microscopic WBC 1190 /hpf (0-5) H 11/21/16 18:08 Ur Squamous Epith Cells 4 /hpf (0-5) 11/21/16 18:08 Amorphous Sediment Few /ul (<OCC) H 11/21/16 18:08 Influenza Typ A,B (EIA) Negative for flu a/b (NEGATIVE) 11/21/16 17:20 - Hospital Course Hospital Course: 61 YO M w/ h/o CVA, hypertension was admitted for a UTI and has been receiving IV antibiotics. Patient will be d/c to TCU to receive Rocephin 1gm IVPB for E coli UTI for 7 more days. Discharge Exam - Head Exam Head Exam: ATRAUMATIC, NORMOCEPHALIC - Respiratory Exam Respiratory Exam: NORMAL BREATHING PATTERN. absent: Rales, Rhonchi, Wheezes - Cardiovascular Exam Cardiovascular Exam: REGULAR RHYTHM, +S1, +S2 - GI/Abdominal Exam GI & Abdominal Exam: Normal Bowel Sounds, Soft. absent: Tenderness - Neurological Exam Neurological exam: Alert, Oriented x3 Discharge Plan - Discharge Medications Prescriptions: cefTRIAXone 1 gm [Rocephin 1 gram IVPB] 1 gm IVPB DAILY #7 bag - Follow Up Plan Condition: GOOD Disposition: REHAB FACILITY/REHAB UNIT Additional Instructions: patient cleared for discharge to TCU today by cont. Abx Rocephin 1gm Iv Daily x 7 days cont. to f/u with Dr. Xiong Referrals: Kaz Xiong MD [Staff Provider] -
[2016-11-26 11:10] VITALS: O2SAT 98
== END 2016-11-25 15:10 | DRG 901 ==
LOC: H.ER 16:34 → H.ERHOLD 18:59 → H.TEL 21:40
PROVIDERS: ADMIT Internal Medicine; ATTEND Internal Medicine
PROC: 3E0234Z Introduction of Serum, Toxoid and Vaccine into Muscle, Percutaneous Approach (ICD-10-PCS; principal; 2016-11-22)
DX: A41.9 Sepsis, unspecified organism (principal); E11.65 Type 2 diabetes mellitus with hyperglycemia; N39.0 Urinary tract infection, site not specified; I10 Essential (primary) hypertension; B96.20 Unspecified Escherichia coli [E. coli] as the cause of diseases classified elsewhere; E78.5 Hyperlipidemia, unspecified; I69.351 Hemiplegia and hemiparesis following cerebral infarction affecting right dominant side; Z23 Encounter for immunization; Z79.4 Long term (current) use of insulin; Z79.82 Long term (current) use of aspirin; Z87.891 Personal history of nicotine dependence; Z91.013 Allergy to seafood

== ENCOUNTER 2016-11-25 10:49 | Inpatient (IN) | payer MEDICAID ==
[2016-11-25 15:27] VITALS: BMI 25.2
[2016-11-25 15:56] VITALS: RESP 20
[2016-11-25] MEDS ORDERED: Sodium Chloride 3% for Inhalation 4 ML VIAL.NEB IH PRN (16:20)
[2016-11-25] MEDS: Insulin Lispro (humaLOG) 100 Units/ml Inj SC SCH ×2 (17:09→22:12)
[2016-11-25] MEDS: Lactobacillus Acidophilus 500 MU Cap PO SCH (17:43)
[2016-11-25] MEDS: Insulin Detemir 100 Units/ml Inj SC SCH (21:24)
[2016-11-26] MEDS: Albuterol-Ipratrop 3 mg / 0.5 (3 ml) UD INH SCH ×4 (00:59→19:09)
[2016-11-26] MEDS: Insulin Lispro (humaLOG) 100 Units/ml Inj SC SCH ×4 (06:46→23:11)
--- NOTE | 2016-11-26 08:44 | CP.PCM.HP ---
<Anny Castellano - Last Filed: 11/26/16 08:46> History of Present Illness - History of Present Illness History of Present Illness: 61 YO M w/ h/o diabetes, hypertension s/p CVA with right hemiparesis. Patient was admitted for a UTI after he had noted having high fever, feeling weak, fatigue, tired and lower abdominal pain and urinary pain. Patient's Urine culture showed E coli. Has been receiving IV antiviotics, and is transferred to TCU for reconditioning and receiving IV antibiotics. Present on Admission - Present on Admission Any Indicators Present on Admission: Yes Past Patient History - Past Medical History & Family History Past Medical History?: Yes - Past Social History Smoking Status: Former Smoker - CARDIAC Hx Angina: Yes Hx Cardia Arrhythmia: Yes Hx Hypertension: Yes - PULMONARY Hx Respiratory Disorders: No - NEUROLOGICAL Hx Neurological Disorder: Yes HX Cerebrovascular Accident: Yes - HEENT Hx HEENT Problems: Yes Hx Difficulty Chewing: Yes - RENAL Hx Chronic Kidney Disease: No - ENDOCRINE/METABOLIC Hx Endocrine Disorders: Yes Hx Diabetes Mellitus Type 2: Yes - HEMATOLOGICAL/ONCOLOGICAL Hx Blood Disorders: No - INTEGUMENTARY Hx Dermatological Problems: No - MUSCULOSKELETAL/RHEUMATOLOGICAL Hx Musculoskeletal Disorders: Yes Hx Falls: Yes Other/Comment: Right sided paralysis - GASTROINTESTINAL Hx Gastrointestinal Disorders: Yes HX Swallowing Problems: Yes - GENITOURINARY/GYNECOLOGICAL Hx Genitourinary Disorders: Yes Hx Urinary Tract Infection: Yes - PSYCHIATRIC Hx Psychophysiologic Disorder: Yes Hx Substance Use: No - SURGICAL HISTORY Other/Comment: Hx G Tube removed s/p 5 years ago - ANESTHESIA Hx Anesthesia: Yes Hx Anesthesia Reactions: No Meds Allergies/Adverse Reactions: Allergies Allergy/AdvReac Type Severity Reaction Status Date / Time FISH Allergy RASH Verified 11/25/16 15:27 shellfish derived Allergy RASH Verified 11/25/16 15:27 Physical Exam - Constitutional Appears: No Acute Distress - Head Exam Head Exam: NORMAL INSPECTION - Eye Exam Eye Exam: Normal appearance - ENT Exam ENT Exam: Mucous Membranes Moist - Respiratory Exam Respiratory Exam: Clear to Auscultation Bilateral. absent: Rhonchi, Wheezes - Cardiovascular Exam Cardiovascular Exam: REGULAR RHYTHM, +S1, +S2 - GI/Abdominal Exam GI & Abdominal Exam: Normal Bowel Sounds, Soft. absent: Tenderness - Neurological Exam Neurological exam: Alert, Oriented x3 Results - Vital Signs Recent Vital Signs: Last Vital Signs Temp 97.9 F 10/19/17 07:59 Pulse 77 11/26/16 07:59 Resp 20 11/26/16 07:59 BP 130/71 11/26/16 07:59 Pulse Ox 95 11/26/16 07:59 - Labs Labs: Laboratory Results - last 24 hr 11/25/16 11/26/16 20:54 06:02 POC Glucose (mg/dL) 196 H 136 H Assessment & Plan - Assessment and Plan (Free Text) Assessment: 1) UTI - Urine culture: E coli - No Blood culture growth - WBC trending down - Afebrile - Ceftriaxone - PT/OT 2) HTN - Metroprolol 3) Hyperlipidemia Tricor 4) DM2 - Metformin - Sliding scale 5) DVT prophylaxis -Lovenox <Xiong,Kaz K - Last Filed: 12/03/16 11:23> Results - Vital Signs Recent Vital Signs: Last Vital Signs Temp 97.9 F 12/03/16 08:02 Pulse 68 12/03/16 08:45 Resp 20 12/03/16 08:02 BP 118/68 12/03/16 08:45 Pulse Ox 99 12/03/16 08:02 - Labs Result Diagrams: 12/02/16 05:50 12/02/16 05:50 Labs: Laboratory Results - last 24 hr 12/02/16 12/02/16 12/03/16 17:03 21:03 06:15 POC Glucose (mg/dL) 83 119 H 94 12/03/16 10:45 POC Glucose (mg/dL) 100 Assessment & Plan - Assessment and Plan (Free Text) Assessment: Patient was personally seen and examined by me in rounds with residents. Available labs and diagnostic data reviewed. Case, Patient's condition and management plan discussed with residents in rounds. Agree with resident's progress note. Plan: As ordered.
[2016-11-26] MEDS: Lactobacillus Acidophilus 500 MU Cap PO SCH ×2 (09:12→17:20)
[2016-11-26] MEDS: Aspirin-Dipyridamole 200-25 mg ER Cap PO SCH (09:16)
[2016-11-26] MEDS: Pantoprazole 40 mg EC Tab PO SCH (09:16)
[2016-11-26] MEDS: Enoxaparin 40 mg Syringe SC SCH (09:17)
[2016-11-26] MEDS ORDERED: Barium Sulfate Susp 0.1% w/v, 0.1% w/w 450 mL Bottle PO ONE (13:14)
--- NOTE | 2016-11-26 14:39 | RAD ---
PROCEDURE: Modified barium video swallow HISTORY: swallow evaluation COMPARISON: Not available TECHNIQUE: The examination was performed in conjunction with a member of the speech therapy department. Barium mixtures varying viscosity were administered orally under fluoroscopic monitoring. Total time of fluoroscopy was 239.2 seconds. FINDINGS: Transient laryngeal penetration was observed with administration of nectar. There was no aspiration observed during this examination. Please see full report from speech therapy department. IMPRESSION: No aspiration. Please see report of speech therapy.
[2016-11-26] MEDS: Insulin Detemir 100 Units/ml Inj SC SCH (21:01)
[2016-11-26] MEDS: Docusate-Senna 50 mg-8.6 mg Tab PO SCH (22:00)
[2016-11-27] MEDS: Albuterol-Ipratrop 3 mg / 0.5 (3 ml) UD INH SCH ×4 (00:59→19:42)
[2016-11-27] MEDS: Insulin Lispro (humaLOG) 100 Units/ml Inj SC SCH ×4 (06:49→22:36)
--- NOTE | 2016-11-27 08:42 | CP.PCM.PN ---
<Anny Castellano - Last Filed: 11/27/16 08:45> Subjective - Date & Time of Evaluation Date of Evaluation: 11/27/16 Time of Evaluation: 08:40 - Subjective Subjective: Patient seen and examined with Dr. Xiong. Patient seen resting comfortably. Has been participating with PT. Denies any overnight events. Objective - Vital Signs/Intake and Output Vital Signs (last 24 hours): Temp Pulse Resp BP Pulse Ox 97.9 F 70 20 144/76 96 11/27/16 08:08 11/27/16 08:08 11/27/16 08:08 11/27/16 08:08 11/27/16 08:08 - Medications Medications: Current Medications Acetaminophen (Tylenol 325mg Tab) 650 mg PO Q4 PRN PRN Reason: Fever >100.4 F Albuterol/Ipratropium (Duoneb 3 Mg/0.5 Mg (3 Ml) Ud) 3 ml INH RQ6 [facility] Last Admin: 11/27/16 07:48 Dose: 3 ml Alprazolam (Xanax) 0.25 mg PO Q8 [facility] Stop: 12/02/16 17:01 Last Admin: 11/27/16 02:01 Dose: Not Given Aripiprazole (Abilify) 5 mg PO DAILY [facility] Last Admin: 11/26/16 11:12 Dose: 5 mg Citalopram Hydrobromide (Celexa) 40 mg PO DAILY [facility] Last Admin: 11/26/16 09:13 Dose: 40 mg Dipyridamole/Aspirin (Aggrenox 25-200 Mg) 1 ea PO DAILY [facility] Last Admin: 11/26/16 09:16 Dose: 1 ea Docusate Sodium (Colace) 100 mg PO BID [facility] Last Admin: 11/26/16 17:40 Dose: Not Given Enoxaparin Sodium (Lovenox) 40 mg SC DAILY [facility] PRN Reason: Protocol Last Admin: 11/26/16 09:17 Dose: 40 mg Fenofibrate (Tricor) 145 mg PO DAILY [facility] Last Admin: 11/26/16 09:13 Dose: 145 mg Ceftriaxone Sodium 1 gm/ (Sodium Chloride) 100 mls @ 100 mls/hr IVPB DAILY@ 1700 [facility] PRN Reason: Protocol Stop: 12/03/16 06:00 Last Admin: 11/26/16 17:21 Dose: 100 mls/hr Insulin Detemir (Levemir) 30 units SC [facility] Last Admin: 11/26/16 21:01 Dose: 30 units Insulin Human Lispro (Humalog) 0 units SC ACCU-CHECK [facility] PRN Reason: Protocol Last Admin: 11/27/16 06:49 Dose: Not Given Lactobacillus Acidophilus (Bacid Acidophilus) 1 cap PO BID [facility] Last Admin: 11/26/16 17:20 Dose: 1 cap Metformin HCl (Glucophage) 1,000 mg PO BID [facility] Last Admin: 11/26/16 17:21 Dose: 1,000 mg Metoprolol Tartrate (Lopressor) 25 mg PO DAILY [facility] Last Admin: 11/26/16 09:17 Dose: 25 mg Oxcarbazepine (Trileptal) 600 mg PO BID [facility] Last Admin: 11/26/16 17:22 Dose: 600 mg Pantoprazole Sodium (Protonix Ec Tab) 40 mg PO DAILY [facility] Last Admin: 11/26/16 09:16 Dose: 40 mg Senna/Docusate Sodium (Senokot S 50 Mg-8.6 Mg) 2 tab PO [facility] Last Admin: 11/26/16 22:00 Dose: 2 tab Trazodone HCl (Desyrel) 100 mg PO [facility] Last Admin: 11/26/16 21:00 Dose: 100 mg - Constitutional Appears: No Acute Distress - Head Exam Head Exam: NORMAL INSPECTION - Eye Exam Eye Exam: Normal appearance - Respiratory Exam Respiratory Exam: Clear to Ausculation Bilateral. absent: Rhonchi, Wheezes - Cardiovascular Exam Cardiovascular Exam: REGULAR RHYTHM, +S1, +S2 - GI/Abdominal Exam GI & Abdominal Exam: Soft, Normal Bowel Sounds. absent: Tenderness - Neurological Exam Neurological Exam: Alert, Awake, Oriented x3 Additional comments: Positive for : Numbness (right hemiparesis, change in speech ( difficulty speaking s/p CVA Assessment and Plan - Assessment and Plan (Free Text) Assessment: 1) UTI - Urine culture: E coli - No Blood culture growth - WBC trending down - Afebrile - Ceftriaxone - PT/OT 2) HTN - Metroprolol 3) Hyperlipidemia Tricor 4) DM2 - Metformin - Sliding scale 5) DVT prophylaxis -Lovenox <Xiong,Kaz K - Last Filed: 12/03/16 11:25> Objective - Vital Signs/Intake and Output Vital Signs (last 24 hours): Temp Pulse Resp BP Pulse Ox 97.9 F 68 20 118/68 99 12/03/16 08:02 12/03/16 08:45 12/03/16 08:02 12/03/16 08:45 12/03/16 08:02 - Medications Medications: Current Medications Acetaminophen (Tylenol 325mg Tab) 650 mg PO Q4 PRN PRN Reason: Fever >100.4 F Albuterol/Ipratropium (Duoneb 3 Mg/0.5 Mg (3 Ml) Ud) 3 ml INH RQ6 [facility] Last Admin: 12/03/16 07:27 Dose: 3 ml Alprazolam (Xanax) 0.25 mg PO Q8 [facility] PRN Reason: Anxiety Stop: 12/10/16 07:44 Aripiprazole (Abilify) 5 mg PO DAILY [facility] Last Admin: 12/03/16 08:44 Dose: 5 mg Citalopram Hydrobromide (Celexa) 40 mg PO DAILY [facility] Last Admin: 12/03/16 08:45 Dose: 40 mg Dipyridamole/Aspirin (Aggrenox 25-200 Mg) 1 ea PO DAILY [facility] Last Admin: 12/03/16 08:44 Dose: 1 ea Docusate Sodium (Colace) 100 mg PO BID [facility] Last Admin: 12/03/16 08:45 Dose: 100 mg Enoxaparin Sodium (Lovenox) 40 mg SC DAILY [facility] PRN Reason: Protocol Last Admin: 12/03/16 08:46 Dose: 40 mg Fenofibrate (Tricor) 145 mg PO DAILY [facility] Last Admin: 12/03/16 08:46 Dose: 145 mg Ceftriaxone Sodium (Rocephin Iv 1 Gm Duplex) 50 mls @ 50 mls/hr IVPB DAILY@ 1700 [facility] PRN Reason: Protocol Last Admin: 12/02/16 19:20 Dose: 50 mls/hr Insulin Detemir (Levemir) 30 units SC HS [facility] Last Admin: 12/02/16 21:27 Dose: 30 units Insulin Human Lispro (Humalog) 0 units SC ACCU-CHECK [facility] PRN Reason: Protocol Last Admin: 12/03/16 07:04 Dose: Not Given Lactobacillus Acidophilus (Bacid Acidophilus) 1 cap PO BID [facility] Last Admin: 12/03/16 08:44 Dose: 1 cap Metformin HCl (Glucophage) 1,000 mg PO BID [facility] Last Admin: 12/03/16 08:45 Dose: 1,000 mg Metoprolol Tartrate (Lopressor) 25 mg PO DAILY [facility] Last Admin: 12/03/16 08:45 Dose: 25 mg Oxcarbazepine (Trileptal) 600 mg PO BID [facility] Last Admin: 12/03/16 08:46 Dose: 600 mg Pantoprazole Sodium (Protonix Ec Tab) 40 mg PO DAILY [facility] Last Admin: 12/03/16 08:46 Dose: 40 mg Senna/Docusate Sodium (Senokot S 50 Mg-8.6 Mg) 2 tab PO [facility] Last Admin: 12/02/16 21:27 Dose: 2 tab Trazodone HCl (Desyrel) 100 mg PO [facility] Last Admin: 12/02/16 21:27 Dose: 100 mg - Labs Labs: 12/02/16 05:50 12/02/16 05:50 Assessment and Plan - Assessment and Plan (Free Text) Assessment: Patient was personally seen and examined by me in rounds with residents. Available labs and diagnostic data reviewed. Case, Patient's condition and management plan discussed with residents in rounds. Agree with resident's progress note. Plan: As ordered.
[2016-11-27] MEDS: Aspirin-Dipyridamole 200-25 mg ER Cap PO SCH (09:37)
[2016-11-27] MEDS: Pantoprazole 40 mg EC Tab PO SCH (09:41)
[2016-11-27] MEDS: Enoxaparin 40 mg Syringe SC SCH (09:41)
[2016-11-27] MEDS: Lactobacillus Acidophilus 500 MU Cap PO SCH ×2 (09:43→17:11)
[2016-11-27] MEDS: Insulin Detemir 100 Units/ml Inj SC SCH (21:34)
[2016-11-27] MEDS: Docusate-Senna 50 mg-8.6 mg Tab PO SCH (21:36)
[2016-11-28] MEDS: Albuterol-Ipratrop 3 mg / 0.5 (3 ml) UD INH SCH ×4 (01:00→19:08)
[2016-11-28] MEDS: Insulin Lispro (humaLOG) 100 Units/ml Inj SC SCH ×4 (07:15→22:21)
[2016-11-28] MEDS: Lactobacillus Acidophilus 500 MU Cap PO SCH ×2 (09:42→16:31)
[2016-11-28] MEDS: Aspirin-Dipyridamole 200-25 mg ER Cap PO SCH (09:43)
[2016-11-28] MEDS: Pantoprazole 40 mg EC Tab PO SCH (09:43)
[2016-11-28] MEDS: Enoxaparin 40 mg Syringe SC SCH (09:47)
[2016-11-28] MEDS: Insulin Detemir 100 Units/ml Inj SC SCH (21:28)
[2016-11-28] MEDS: Docusate-Senna 50 mg-8.6 mg Tab PO SCH (21:30)
[2016-11-29] MEDS: Albuterol-Ipratrop 3 mg / 0.5 (3 ml) UD INH SCH ×4 (01:03→19:04)
[2016-11-29] MEDS: Insulin Lispro (humaLOG) 100 Units/ml Inj SC SCH ×4 (06:39→23:10)
[2016-11-29] MEDS: Enoxaparin 40 mg Syringe SC SCH (08:43)
[2016-11-29] MEDS: Aspirin-Dipyridamole 200-25 mg ER Cap PO SCH (08:45)
[2016-11-29] MEDS: Pantoprazole 40 mg EC Tab PO SCH (08:46)
[2016-11-29] MEDS: Lactobacillus Acidophilus 500 MU Cap PO SCH ×2 (08:51→17:44)
--- NOTE | 2016-11-29 11:42 | PN ---
DATE: 11/29/2016 SUBJECTIVE: Patient seen and examined. Interim events noted. Patient remains in Transitional Care Unit. Patient is sleeping, arousable, feels okay. Denies any specific complaints. No urinary symptoms. PHYSICAL EXAMINATION: GENERAL: Patient is in no acute distress. VITAL SIGNS: Stable. HEART: S1 and S2, normal and regular. LUNGS: Good bilateral air exchange. ABDOMEN: Soft, nontender. EXTREMITIES: No edema. No calf swelling. No tenderness. No acute ischemia. CENTRAL NERVOUS SYSTEM: Essentially unchanged. DIAGNOSTIC DATA: Available diagnostic data reviewed. ASSESSMENT AND PLAN: Overall, patient is clinically stable and improving. Plan as ordered. Kaz Xiong MD
[2016-11-29] MEDS: Insulin Detemir 100 Units/ml Inj SC SCH (21:43)
[2016-11-29] MEDS: Docusate-Senna 50 mg-8.6 mg Tab PO SCH (21:44)
[2016-11-30] MEDS: Albuterol-Ipratrop 3 mg / 0.5 (3 ml) UD INH SCH ×4 (01:07→19:09)
[2016-11-30] MEDS: Insulin Lispro (humaLOG) 100 Units/ml Inj SC SCH ×4 (06:44→23:00)
[2016-11-30] MEDS: Lactobacillus Acidophilus 500 MU Cap PO SCH ×2 (08:44→17:32)
[2016-11-30] MEDS: Enoxaparin 40 mg Syringe SC SCH (08:44)
[2016-11-30] MEDS: Pantoprazole 40 mg EC Tab PO SCH (08:46)
[2016-11-30] MEDS: Aspirin-Dipyridamole 200-25 mg ER Cap PO SCH (08:47)
--- NOTE | 2016-11-30 10:19 | PN ---
DATE: 11/30/2016 SUBJECTIVE: The patient is seen and examined. Interim events noted. The patient remains in Transitional Care Unit on IV antibiotic. The patient feels okay. Denies any specific complaint of chest pain, shortness of breath or any urinary symptoms. PHYSICAL EXAMINATION: GENERAL: The patient is in no acute distress. VITAL SIGNS: Stable. HEART: S1 and S2, normal and regular. LUNGS: Good bilateral air exchange. ABDOMEN: Soft, nontender. EXTREMITIES: No edema. No calf swelling. No tenderness. No acute ischemia. CENTRAL NERVOUS SYSTEM: Essentially unchanged and the patient is status post CVA with hemiplegia. DIAGNOSTIC DATA: Available diagnostic data reviewed. ASSESSMENT AND PLAN: Overall, the patient's is clinically stable, tolerating treatment very well and improving. Plan as ordered. Kaz Xiong MD
[2016-11-30] MEDS: Insulin Detemir 100 Units/ml Inj SC SCH (21:12)
[2016-11-30] MEDS: Docusate-Senna 50 mg-8.6 mg Tab PO SCH (21:13)
[2016-12-01] MEDS: Albuterol-Ipratrop 3 mg / 0.5 (3 ml) UD INH SCH ×4 (01:01→19:47)
[2016-12-01] MEDS: Insulin Lispro (humaLOG) 100 Units/ml Inj SC SCH ×3 (06:09→17:00)
[2016-12-01] MEDS: Pantoprazole 40 mg EC Tab PO SCH (08:43)
[2016-12-01] MEDS: Lactobacillus Acidophilus 500 MU Cap PO SCH ×2 (08:43→17:03)
[2016-12-01] MEDS: Aspirin-Dipyridamole 200-25 mg ER Cap PO SCH (08:44)
[2016-12-01] MEDS: Enoxaparin 40 mg Syringe SC SCH (08:45)
--- NOTE | 2016-12-01 10:27 | CP.PCM.CON ---
History of Present Illness - History of Present Illness History of Present Illness: 61 YO M w/ h/o diabetes, hypertension s/p CVA with right hemiparesis. Patient was admitted for a UTI after he had noted having high fever, feeling weak, fatigue, tired and lower abdominal pain and urinary pain. Patient's Urine culture showed E coli. Has been receiving IV antiviotics, and is transferred to TCU for reconditioning and receiving IV antibiotics. Review of Systems - Constitutional Constitutional: Anorexia. absent: Chills, Fever - EENT Eyes: absent: As Per HPI, Blind Spots, Blurred Vision, Change in Vision, Decreased Night Vision, Diplopia, Discharge, Dry Eye, Exophthalmos, Floaters, Irritation, Itchy Eyes, Loss of Peripheral Vision, Pain, Photophobia, Requires Corrective Lenses, Sees Flashes, Spots in Vision, Tunnel Vision, Other Visual Disturbances, Loss of Vision, Other Ears: absent: As Per HPI, Decreased Hearing, Ear Discharge, Ear Pain, Tinnitus, Abnormal Hearing, Disequilibrium, Dizziness, Other Nose/Mouth/Throat: absent: As Per HPI, Epistaxis, Nasal Congestion, Nasal Discharge, Nasal Obstruction, Nasal Trauma, Nose Pain, Post Nasal Drip, Sinus Pain, Sinus Pressure, Bleeding Gums, Change in Voice, Dental Pain, Dry Mouth, Dysphagia, Halitosis, Hoarsness, Lip Swelling, Mouth Lesions, Mouth Pain, Odynophagia, Sore Throat, Throat Swelling, Tongue Swelling, Facial Pain, Neck Pain, Neck Mass, Other - Cardiovascular Cardiovascular: absent: As Per HPI, Acrocyanosis, Chest Pain, Chest Pain at Rest , Chest Pain with Activity, Claudication, Diaphoresis, Dyspnea, Dyspnea on Exertion, Edema, Irregular Heart Rhythm, Pain Radiating to Arm/Neck/Jaw, Leg Edema, Leg Ulcers, Lightheadedness, Orthopnea, Palpitations, Paroxysmal Nocturnal Dyspnea, Pedal Edema, Radiating Pain, Rapid Heart Rate, Slow Heart Rate, Syncope, Other - Respiratory Respiratory: absent: As Per HPI, Cough, Dyspnea, Hemoptysis, Dyspnea on Exertion , Wheezing, Snoring, Stridor, Pain on Inspiration, Chest Congestion, Excessive Mucous Production, Change in Mucous Color, Pain with Coughing, Other - Gastrointestinal Gastrointestinal: absent: As Per HPI, Abdominal Pain, Belching, Bloating, Change in Bowel Habits, Change in Stool Character, Coffee Ground Emesis, Constipation, Cramping, Diarrhea, Dyspepsia, Dysphagia, Early Satiety, Excessive Flatus, Fecal Incontinence, Heartburn, Hematemesis, Hematochezia, Loose Stools, Melena, Nausea, Odynophagia, Temesmus, Vomiting, Other - Genitourinary Genitourinary: absent: As Per HPI, Change in Urinary Stream, Difficulty Urinating, Dysuria, Flank Pain, Hematuria, Pyuria, Nocturia, Urinary Incontinence, Urinary Frequency, Urinary Hesitance, Urinary Urgency, Voiding Freq/Small Amts, Freq UTI, Hx Renal/Bladder Calculi, Hx /Renal Surgery, Bladder Distension, Other - Musculoskeletal Musculoskeletal: As Per HPI - Integumentary Integumentary: absent: As Per HPI, Acne, Alopecia, Bleeding Lesions, Change in Hair, Change in Nails, Change in Pigmentation, Changing Lesions, Dry Skin, Erythema, Furuncle, Hirsutism, Lesions, New Lesions, Non-Healing Lesions, Photosensitivity, Pruritus, Rash, Skin Pain, Skin Ulcer, Sores, Striae, Swelling , Unusual Bruising, Wounds, Jaundice, Other - Neurological Neurological: As Per HPI, Abnormal Gait - Psychiatric Psychiatric: absent: As Per HPI, Abnormal Sleep Pattern, Anhedonia, Anxiety, Auditory Hallucinations, Behavioral Changes, Change in Appetite, Change in Libido, Confusion, Depression, Difficulty Concentrating, Hallucinations, Homicidal Ideation, Hopelessness, Irritability, Memory Loss, Mood Swings, Panic Attacks, Paranoia, Suicidal Ideation, Visual Hallucinations, Tactile Hallucinations, Other - Endocrine Endocrine: absent: As Per HPI, Change in Body Appearance, Change in Libido, Cold Intolorance, Deepening of Voice, Excessive Sweating, Fatigue, Flushing, Heat Intolorance, Increase in Ring/Shoe/Hat Size, Palpitations, Polydipsia, Polyphagia, Polyuria, Other - Hematologic/Lymphatic Hematologic: absent: As Per HPI, Easy Bleeding, Easy Bruising, Lymphadenopathy, Other Past Patient History - Past Medical History & Family History Past Medical History?: Yes - Past Social History Smoking Status: Former Smoker - CARDIAC Hx Angina: Yes Hx Cardia Arrhythmia: Yes Hx Hypertension: Yes - PULMONARY Hx Respiratory Disorders: No - NEUROLOGICAL Hx Neurological Disorder: Yes HX Cerebrovascular Accident: Yes - HEENT Hx HEENT Problems: Yes Hx Difficulty Chewing: Yes - RENAL Hx Chronic Kidney Disease: No - ENDOCRINE/METABOLIC Hx Endocrine Disorders: Yes Hx Diabetes Mellitus Type 2: Yes - HEMATOLOGICAL/ONCOLOGICAL Hx Blood Disorders: No - INTEGUMENTARY Hx Dermatological Problems: No - MUSCULOSKELETAL/RHEUMATOLOGICAL Hx Musculoskeletal Disorders: Yes Hx Falls: Yes Other/Comment: Right sided paralysis - GASTROINTESTINAL Hx Gastrointestinal Disorders: Yes HX Swallowing Problems: Yes - GENITOURINARY/GYNECOLOGICAL Hx Genitourinary Disorders: Yes Hx Urinary Tract Infection: Yes - PSYCHIATRIC Hx Psychophysiologic Disorder: Yes Hx Substance Use: No - SURGICAL HISTORY Other/Comment: Hx G Tube removed s/p 5 years ago - ANESTHESIA Hx Anesthesia: Yes Hx Anesthesia Reactions: No Meds Allergies/Adverse Reactions: Allergies Allergy/AdvReac Type Severity Reaction Status Date / Time FISH Allergy RASH Verified 11/25/16 15:27 shellfish derived Allergy RASH Verified 11/25/16 15:27 - Medications Medications: Current Medications Acetaminophen (Tylenol 325mg Tab) 650 mg PO Q4 PRN PRN Reason: Fever >100.4 F Albuterol/Ipratropium (Duoneb 3 Mg/0.5 Mg (3 Ml) Ud) 3 ml INH RQ6 [facility] Last Admin: 12/01/16 07:38 Dose: 3 ml Alprazolam (Xanax) 0.25 mg PO Q8 [facility]ASH Stop: 12/02/16 17:01 Last Admin: 12/01/16 08:45 Dose: 0.25 mg Aripiprazole (Abilify) 5 mg PO DAILY [facility] Last Admin: 12/01/16 08:43 Dose: 5 mg Citalopram Hydrobromide (Celexa) 40 mg PO DAILY [facility] Last Admin: 12/01/16 08:44 Dose: 40 mg Dipyridamole/Aspirin (Aggrenox 25-200 Mg) 1 ea PO DAILY [facility] Last Admin: 12/01/16 08:44 Dose: 1 ea Docusate Sodium (Colace) 100 mg PO BID [facility] Last Admin: 12/01/16 08:43 Dose: 100 mg Enoxaparin Sodium (Lovenox) 40 mg SC DAILY [facility] PRN Reason: Protocol Last Admin: 12/01/16 08:45 Dose: 40 mg Fenofibrate (Tricor) 145 mg PO DAILY [facility] Last Admin: 12/01/16 08:44 Dose: 145 mg Ceftriaxone Sodium 1 gm/ (Sodium Chloride) 100 mls @ 100 mls/hr IVPB DAILY@ 1700 [facility] PRN Reason: Protocol Stop: 12/03/16 06:00 Last Admin: 11/30/16 17:33 Dose: 100 mls/hr Insulin Detemir (Levemir) 30 units SC [facility] Last Admin: 11/30/16 21:12 Dose: 30 units Insulin Human Lispro (Humalog) 0 units SC ACCU-CHECK [facility] PRN Reason: Protocol Last Admin: 12/01/16 06:09 Dose: Not Given Lactobacillus Acidophilus (Bacid Acidophilus) 1 cap PO BID [facility] Last Admin: 12/01/16 08:43 Dose: 1 cap Metformin HCl (Glucophage) 1,000 mg PO BID [facility] Last Admin: 12/01/16 08:44 Dose: 1,000 mg Metoprolol Tartrate (Lopressor) 25 mg PO DAILY [facility] Last Admin: 12/01/16 08:44 Dose: 25 mg Oxcarbazepine (Trileptal) 600 mg PO BID [facility] Last Admin: 12/01/16 08:43 Dose: 600 mg Pantoprazole Sodium (Protonix Ec Tab) 40 mg PO DAILY [facility] Last Admin: 12/01/16 08:43 Dose: 40 mg Senna/Docusate Sodium (Senokot S 50 Mg-8.6 Mg) 2 tab PO [facility] Last Admin: 11/30/16 21:13 Dose: 2 tab Trazodone HCl (Desyrel) 100 mg PO [facility] Last Admin: 11/30/16 21:13 Dose: 100 mg Physical Exam - Constitutional Appears: Non-toxic, Chronically Ill - Head Exam Head Exam: NORMOCEPHALIC - Eye Exam Eye Exam: PERRL - ENT Exam ENT Exam: Mucous Membranes Dry, Normal External Ear Exam - Neck Exam Neck exam: Negative for: Lymphadenopathy - Respiratory Exam Respiratory Exam: Decreased Breath Sounds - Cardiovascular Exam Cardiovascular Exam: REGULAR RHYTHM, +S1, +S2 - GI/Abdominal Exam GI & Abdominal Exam: Diminished Bowel Sounds, Soft. absent: Tenderness - Rectal Exam Rectal Exam: Deferred - Exam Exam: NORMAL INSPECTION - Extremities Exam Extremities exam: Negative for: pedal edema - Back Exam Back exam: absent: CVA tenderness (L), CVA tenderness (R) - Neurological Exam Neurological exam: Alert, CN II-XII Intact, Oriented x3, Reflexes Normal - Psychiatric Exam Psychiatric exam: Normal Mood - Skin Skin Exam: Dry Results - Vital Signs Recent Vital Signs: Last Vital Signs Temp 97.3 F L 12/01/16 08:41 Pulse 74 12/01/16 08:44 Resp 20 12/01/16 08:41 BP 120/61 12/01/16 08:44 Pulse Ox 96 12/01/16 08:41 - Labs Labs: Laboratory Results - last 24 hr 11/30/16 11/30/16 11/30/16 10:47 15:45 20:34 POC Glucose (mg/dL) 94 126 H 189 H 12/01/16 04:40 POC Glucose (mg/dL) 101 Assessment & Plan (1) Severe sepsis Status: Acute (2) UTI (urinary tract infection) Status: Acute (3) Diabetes Status: Chronic (4) Hypertension Status: Chronic - Assessment and Plan (Free Text) Assessment: day 11 iv antibiotics for ecoli sepsis to complete 14 days then d/c will obtain u/a and c/s
--- NOTE | 2016-12-01 11:27 | PN ---
DATE: 12/01/2016 SUBJECTIVE: Patient seen and examined. Interim events noted. Patient remains in Transitional Care Unit, on IV antibiotics. Feels okay. Denies any urinary complaints. No chest pain. No shortness of breath. Complains of generalized weakness and his chronic right-sided weakness from previous CVA. PHYSICAL EXAMINATION: GENERAL: Patient is in no acute distress. VITAL SIGNS: Stable. HEART: S1 and S2, normal and regular. LUNGS: Good bilateral air exchange. ABDOMEN: Soft, nontender. EXTREMITIES: No edema. No calf swelling. No tenderness. No acute ischemia. CENTRAL NERVOUS SYSTEM: Essentially unchanged. DIAGNOSTIC DATA: Available diagnostic data reviewed. ASSESSMENT AND PLAN: Overall, patient's general medical condition is slowly improving. Plan as ordered. Kaz Xiong MD
[2016-12-01 17:09] LABS: RBC URINE 2 /hpf (0-3); URINE BILIRUBIN NEGATIVE (NEGATIVE); URINE BLOOD NEGATIVE (NEGATIVE); URINE COLOR YELLOW (YELLOW); URINE GLUCOSE (UA) NEG (Normal); URINE KETONE NEGATIVE (NEGATIVE); URINE LEUKOCYTE ESTERASE NEG Leu/uL (Negative); URINE PROTEIN 30 mg/dL (NEGATIVE); WBC URINE 3 /hpf (0-5)
[2016-12-01] MEDS: Insulin Detemir 100 Units/ml Inj SC SCH (21:28)
[2016-12-01] MEDS: Docusate-Senna 50 mg-8.6 mg Tab PO SCH (21:29)
[2016-12-02] MEDS: Albuterol-Ipratrop 3 mg / 0.5 (3 ml) UD INH SCH ×4 (01:02→19:19)
[2016-12-02] MEDS: Insulin Lispro (humaLOG) 100 Units/ml Inj SC SCH ×4 (01:58→17:42)
[2016-12-02 06:39] LABS: BASO # 0.1 K/uL (0.0-0.2); EOS # 0.5 K/uL (0.0-0.7); EOS % 7.5 % (0.0-4.0); HEMATOCRIT 35.8 % (35.0-51.0); LYMPH # 1.3 K/uL (1.0-4.3); LYMPH % 19.3 % (20.0-40.0); MEAN CELL VOLUME 80.5 fl (80.0-94.0); MEAN CORPUSCULAR HEMOGLOBIN 27.5 pg (27.0-31.0); MEAN CORPUSCULAR HGB CONC 34.2 g/dL (33.0-37.0); MEAN PLATELET VOLUME 7.3 fl (7.2-11.7); MONO # 0.4 K/uL (0.0-0.8); MONO % 5.4 % (0.0-10.0); NEUT # 4.4 K/uL (1.8-7.0); NEUT % 66.8 % (50.0-75.0); NRBC % 0.1 % (0.0-0.0); RED CELL DISTRIBUTION WIDTH 14.3 % (11.5-14.5); WHITE BLOOD COUNT 6.6 K/uL (4.8-10.8)
[2016-12-02 06:44] LABS: ALB/GLOB RATIO 1.5 (1.0-2.1); ALKALINE PHOSPHATASE 53 U/L (38-126); ALT/SGPT 24 U/L (21-72); AST/SGOT 15 U/L (17-59); BILIRUBIN,TOTAL 0.1 mg/dl (0.2-1.3); BLOOD UREA NITROGEN 21 mg/dl (9-20); CALCIUM 8.9 mg/dL (8.4-10.2); CARBON DIOXIDE 26 mmol/L (22-30); CHLORIDE 109 mmol/L (98-107); GFR AFRICAN-AMERICAN > 60; GLUCOSE,RANDOM 161 mg/dL (75-110); POTASSIUM 4.1 MMOL/L (3.6-5.0); SODIUM 144 mmol/l (132-148); TOTAL PROTEIN 6.1 G/DL (6.3-8.2)
[2016-12-02] MEDS: Aspirin-Dipyridamole 200-25 mg ER Cap PO SCH (09:22)
[2016-12-02] MEDS: Pantoprazole 40 mg EC Tab PO SCH (09:23)
[2016-12-02] MEDS: Lactobacillus Acidophilus 500 MU Cap PO SCH ×2 (09:23→17:38)
[2016-12-02] MEDS: Enoxaparin 40 mg Syringe SC SCH (09:25)
--- NOTE | 2016-12-02 11:10 | PN ---
DATE: 12/02/2016 SUBJECTIVE: Patient seen and examined. Interim events noted. Consults noted and appreciated. Infectious Disease followup and intervention noted and appreciated. Patient remains in Transitional Care Unit on IV antibiotic for urinary tract infection. Patient feels better. Denies any urinary symptoms. Denies any chest pain or shortness of breath. PHYSICAL EXAMINATION GENERAL: Patient is in no acute distress. VITAL SIGNS: Stable. CARDIOPULMONARY: S1 and S2, normal and regular. LUNGS: Good bilateral air exchange. ABDOMEN: Soft, nontender. EXTREMITIES: No edema. No calf swelling. No tenderness. No acute ischemia. CENTRAL NERVOUS SYSTEM: Essentially unchanged. DIAGNOSTIC DATA: Available diagnostic data reviewed. ASSESSMENT AND PLAN: Overall, patient's general medical condition is stable and improving. Plan as ordered. Kaz Xiong MD
[2016-12-02] MEDS: cefTRIAXone IV 1 gm in Dextros 50 ML IVPB SCH (19:20)
[2016-12-02] MEDS: Insulin Detemir 100 Units/ml Inj SC SCH (21:27)
[2016-12-02] MEDS: Docusate-Senna 50 mg-8.6 mg Tab PO SCH (21:27)
[2016-12-03] MEDS: Albuterol-Ipratrop 3 mg / 0.5 (3 ml) UD INH SCH ×4 (01:01→19:23)
[2016-12-03] MEDS: Insulin Lispro (humaLOG) 100 Units/ml Inj SC SCH ×5 (02:38→23:00)
[2016-12-03] MEDS: Lactobacillus Acidophilus 500 MU Cap PO SCH ×2 (08:44→16:24)
[2016-12-03] MEDS: Aspirin-Dipyridamole 200-25 mg ER Cap PO SCH (08:44)
[2016-12-03] MEDS: Enoxaparin 40 mg Syringe SC SCH (08:46)
[2016-12-03] MEDS: Pantoprazole 40 mg EC Tab PO SCH (08:46)
--- NOTE | 2016-12-03 12:41 | PN ---
DATE: 12/03/2016 SUBJECTIVE: The patient is seen and examined. Interim events noted. The patient remains in Transitional Care Unit on IV antibiotic. The patient feels okay. Denies any specific complaint of chest pain or shortness of breath. No urinary symptoms. PHYSICAL EXAMINATION: GENERAL: The patient is in no acute distress. VITAL SIGNS: Stable. HEART: S1 and S2, normal and regular. LUNGS: Good bilateral air exchange. ABDOMEN: Soft, nontender. EXTREMITIES: No edema. No calf swelling. No tenderness. No acute ischemia. CENTRAL NERVOUS SYSTEM: Essentially unchanged. The patient is status post CVA with right hemiplegia. DIAGNOSTIC DATA: Available diagnostic data reviewed. ASSESSMENT AND PLAN: Overall, the patient is clinically stable. Completing his antibiotic course tomorrow and possible discharge tomorrow. Plan as ordered. Case and plan discussed with the patient. Kaz Xiong MD
[2016-12-03] MEDS: cefTRIAXone IV 1 gm in Dextros 50 ML IVPB SCH (16:24)
[2016-12-03] MEDS: Insulin Detemir 100 Units/ml Inj SC SCH (21:45)
[2016-12-03] MEDS: Docusate-Senna 50 mg-8.6 mg Tab PO SCH (21:45)
[2016-12-04] MEDS: Albuterol-Ipratrop 3 mg / 0.5 (3 ml) UD INH SCH ×2 (01:11→08:05)
--- NOTE | 2016-12-04 08:03 | CP.PCM.DIS ---
Provider - Provider Date of Admission: 11/25/16 15:27 Attending physician: Kaz Xiong MD Time Spent in preparation of Discharge (in minutes): 30 Hospital Course - Lab Results Lab Results: Micro Results 12/01/16 16:59 Urine,Catheterized Urine Culture - Final No Growth (<1,000 CFU/ML) Most Recent Lab Values WBC 6.6 K/uL (4.8-10.8) 12/02/16 05:50 RBC 4.44 Mil/uL (4.40-5.90) 12/02/16 05:50 Hgb 12.2 g/dL (12.0-18.0) 12/02/16 05:50 Hct 35.8 % (35.0-51.0) 12/02/16 05:50 MCV 80.5 fl (80.0-94.0) 12/02/16 05:50 MCH 27.5 pg (27.0-31.0) 12/02/16 05:50 MCHC 34.2 g/dL (33.0-37.0) 12/02/16 05:50 RDW 14.3 % (11.5-14.5) 12/02/16 05:50 Plt Count 255 K/uL (130-400) 12/02/16 05:50 MPV 7.3 fl (7.2-11.7) 12/02/16 05:50 Neut % (Auto) 66.8 % (50.0-75.0) 12/02/16 05:50 Lymph % (Auto) 19.3 % (20.0-40.0) L 12/02/16 05:50 [place] % (Auto) 5.4 % (0.0-10.0) 12/02/16 05:50 Eos % (Auto) 7.5 % (0.0-4.0) H 12/02/16 05:50 Baso % (Auto) 1.0 % (0.0-2.0) 12/02/16 05:50 Neut # 4.4 K/uL (1.8-7.0) 12/02/16 05:50 Lymph # 1.3 K/uL (1.0-4.3) 12/02/16 05:50 [place] # 0.4 K/uL (0.0-0.8) 12/02/16 05:50 Eos # 0.5 K/uL (0.0-0.7) 12/02/16 05:50 Baso # 0.1 K/uL (0.0-0.2) 12/02/16 05:50 Sodium 144 mmol/l (132-148) 12/02/16 05:50 Potassium 4.1 MMOL/L (3.6-5.0) 12/02/16 05:50 Chloride 109 mmol/L (98-107) H 12/02/16 05:50 Carbon Dioxide 26 mmol/L (22-30) 12/02/16 05:50 Anion Gap 13 (10-20) 12/02/16 05:50 BUN 21 mg/dl (9-20) H 12/02/16 05:50 Creatinine 0.9 mg/dL (0.8-1.5) 12/02/16 05:50 Est GFR ( Amer) > 60 12/02/16 05:50 Est GFR (Non-Af Amer) > 60 12/02/16 05:50 POC Glucose (mg/dL) 62 mg/dL (65-110) L 12/04/16 06:42 Random Glucose 161 mg/dL (75-110) H 12/02/16 05:50 Calcium 8.9 mg/dL (8.4-10.2) 12/02/16 05:50 Total Bilirubin 0.1 mg/dl (0.2-1.3) L 12/02/16 05:50 AST 15 U/L (17-59) L D 12/02/16 05:50 ALT 24 U/L (21-72) 12/02/16 05:50 Alkaline Phosphatase 53 U/L (38-126) 12/02/16 05:50 Total Protein 6.1 G/DL (6.3-8.2) L 12/02/16 05:50 Albumin 3.6 g/dL (3.5-5.0) 12/02/16 05:50 Globulin 2.5 gm/dL (2.2-3.9) 12/02/16 05:50 Albumin/Globulin Ratio 1.5 (1.0-2.1) 12/02/16 05:50 Urine Color Yellow (YELLOW) 12/01/16 16:59 Urine Clarity Slighty-cloudy (Clear) 12/01/16 16:59 Urine pH 5.0 (5.0-8.0) 12/01/16 16:59 Ur Specific [place] 1.030 (1.003-1.030) 12/01/16 16:59 Urine Protein 30 mg/dL (NEGATIVE) 12/01/16 16:59 Urine Glucose (UA) Neg mg/dL (Normal) 12/01/16 16:59 Urine Ketones Negative mg/dL (NEGATIVE) 12/01/16 16:59 Urine Blood Negative (NEGATIVE) 12/01/16 16:59 Urine Nitrate Negative (NEGATIVE) 12/01/16 16:59 Urine Bilirubin Negative (NEGATIVE) 12/01/16 16:59 Urine Urobilinogen 2.0 mg/dL (0.2-1.0) 12/01/16 16:59 Ur Leukocyte Esterase Neg [place]/uL (Negative) 12/01/16 16:59 Urine RBC (Auto) 2 /hpf (0-3) 12/01/16 16:59 Urine Microscopic WBC 3 /hpf (0-5) 12/01/16 16:59 Ur Squamous Epith Cells 1 /hpf (0-5) 12/01/16 16:59 - Hospital Course Hospital Course: 1) UTI - Urine culture: E coli on ad,ossopm - No Blood culture growth - WBC trending down - Afebrile - Ceftriaxone x14 IV antibiotics revieved - PT/OT 2) HTN - Metroprolol 3) Hyperlipidemia Tricor 4) DM2 - Metformin - Sliding scale while inpatient Patient was transfered to TCU to revieve 14 days of IV antibiotics and rehabilitation. - Patient is doing well and has completed his antibiotics course and wants to go home. Discharge Exam - Head Exam Head Exam: ATRAUMATIC, NORMOCEPHALIC - Eye Exam Eye Exam: Normal appearance - Respiratory Exam Respiratory Exam: NORMAL BREATHING PATTERN. absent: Wheezes, Respiratory Distress - Cardiovascular Exam Cardiovascular Exam: REGULAR RHYTHM, +S1, +S2 - GI/Abdominal Exam GI & Abdominal Exam: Normal Bowel Sounds, Soft - Neurological Exam Neurological exam: Alert, Oriented x3 Additional comments: right sided hemiparesis Discharge Plan - Follow Up Plan Condition: GOOD Disposition: HOME/ ROUTINE Instructions: Urinary Tract Infection in Women (DC), Urinary Tract Infection in Men (DC), Dysuria (GEN) Additional Instructions: Follow up with PMD within 1 week from discharge. - If symptoms reoccur or worsen return to the ER. - Continue taking home medications
[2016-12-04] MEDS: Insulin Lispro (humaLOG) 100 Units/ml Inj SC SCH ×2 (08:05→12:18)
[2016-12-04 08:36] VITALS: BP 123/67; PULSE 67; TEMP 97.2; O2SAT 95
[2016-12-04] MEDS ORDERED: cefTRIAXone IV 1 gm in Dextros 50 ML IVPB SCH (09:00)
[2016-12-04] MEDS: Pantoprazole 40 mg EC Tab PO SCH (10:19)
[2016-12-04] MEDS: Aspirin-Dipyridamole 200-25 mg ER Cap PO SCH (10:19)
[2016-12-04] MEDS: Enoxaparin 40 mg Syringe SC SCH (10:20)
== END 2016-12-04 14:00 | disposition home or self-care (01) | DRG 901 ==
LOC: H.TCU 15:27
PROVIDERS: ADMIT Internal Medicine; ATTEND Internal Medicine
PROC: 3E03329 Introduction of Other Anti-infective into Peripheral Vein, Percutaneous Approach (ICD-10-PCS; principal; 2016-11-25)
PROC: F07Z9FZ Gait Training/Functional Ambulation Treatment using Assistive, Adaptive, Supportive or Protective Equipment (ICD-10-PCS; 2016-11-25)
PROC: F08Z4FZ Home Management Treatment using Assistive, Adaptive, Supportive or Protective Equipment (ICD-10-PCS; 2016-11-26)
PROC: F07M6FZ Therapeutic Exercise Treatment of Musculoskeletal System - Whole Body using Assistive, Adaptive, Supportive or Protective Equipment (ICD-10-PCS; 2016-11-26)
DX: A41.51 Sepsis due to Escherichia coli [E. coli] (principal); I69.351 Hemiplegia and hemiparesis following cerebral infarction affecting right dominant side; I10 Essential (primary) hypertension; N39.0 Urinary tract infection, site not specified; E11.9 Type 2 diabetes mellitus without complications; E78.5 Hyperlipidemia, unspecified; Z87.891 Personal history of nicotine dependence; Z87.440 Personal history of urinary (tract) infections; Z91.013 Allergy to seafood

== ENCOUNTER 2017-03-19 17:52 | Inpatient (IN) | payer MEDICAID ==
[2017-03-19 17:52] VITALS: BMI 25.2
[2017-03-19 18:51] LABS: BASO # 0.1 K/uL (0.0-0.2); BASO % 0.6 % (0.0-2.0); EOS # 0.1 K/uL (0.0-0.7); EOS % 0.3 % (0.0-4.0); HEMOGLOBIN 14.4 g/dL (12.0-18.0); LYMPH # 1.1 K/uL (1.0-4.3); LYMPH % 5.6 % (20.0-40.0); MEAN CELL VOLUME 83.7 fl (80.0-94.0); MEAN CORPUSCULAR HGB CONC 33.4 g/dL (33.0-37.0); MEAN PLATELET VOLUME 7.7 fl (7.2-11.7); MONO # 1.6 K/uL (0.0-0.8); MONO % 7.9 % (0.0-10.0); NEUT # 17.4 K/uL (1.8-7.0); NEUT % 85.6 % (50.0-75.0); NRBC % 0.3 % (0.0-0.0); PLATELET COUNT 200 K/uL (130-400); RBC 5.15 Mil/uL (4.40-5.90); RED CELL DISTRIBUTION WIDTH 14.4 % (11.5-14.5); WHITE BLOOD COUNT 20.3 K/uL (4.8-10.8)
[2017-03-19 18:52] LABS: VENOUS BLOOD GAS BASE EXCESS -1.7 mmol/L (0.0-2.0); VENOUS BLOOD GAS PCO2 33 mmHg (40-60); VENOUS BLOOD GAS PO2 95 mm/Hg (30-55); VENOUS BLOOD PH 7.43 (7.32-7.43)
[2017-03-19 19:07] LABS: INR 1.2 (0.9-1.2); PARTIAL THROMBOPLASTIN TIME 28.6 Seconds (25.6-37.1); PROTHROMBIN TIME 13.2 Seconds (9.8-13.1)
[2017-03-19] MEDS ORDERED: Azithromycin 500 MG in Sodium Chloride 0.9% 250 ML IVPB ONE (19:15)
[2017-03-19 19:18] LABS: ALBUMIN 4.3 g/dL (3.5-5.0); AST/SGOT 12 U/L (17-59); BLOOD UREA NITROGEN 18 mg/dl (9-20); CALCIUM 9.5 mg/dL (8.4-10.2); GFR AFRICAN-AMERICAN > 60; GFR NON-AFRICAN AMERICAN > 60; MAGNESIUM 1.5 MG/DL (1.6-2.3)
--- NOTE | 2017-03-19 19:27 | ED PDOC ---
HPI: General Adult Time Seen by Provider: 03/19/17 18:09 Chief Complaint (Nursing): Flu-like Symptoms Chief Complaint (Provider): Fever and cough History Per: Patient History/Exam Limitations: no limitations Onset/Duration Of Symptoms: Days (2 days ago) Current Symptoms Are (Timing): Still Present Additional Complaint(s): 61 yo male with a history of CVA, hypertension, right sided hemiplegia, and diabetes, presents to the ED complaining of worsened fever and cough with associated shortness of breath and mild rhinorrhea, onset of 2 days ago. Patient also reports of body aches, fatigue,, and generalized weakness. Past Medical History Reviewed: Historical Data, Nursing Documentation, Vital Signs Vital Signs: Last Vital Signs Temp 102.7 F H 03/19/17 18:48 Pulse 90 03/19/17 17:56 Resp 20 03/19/17 17:56 BP 126/72 03/19/17 17:56 Pulse Ox 98 03/19/17 17:56 - Medical History PMH: Cardia Arrhythmia, CVA (w/residual right-sided hemiparesis), Diabetes, HTN Denies: Chronic Kidney Disease - Surgical History Surgical History: No Surg Hx - Family History Family History: States: Hypertension - Social History Current smoker - smoking cessation education provided: No Ex-Smoker (has not smoked in the last 12 months): Yes Alcohol: None Drugs: Denies - Home Medications Home Medications: Ambulatory Orders Medication Instructions Recorded ARIPiprazole [Abilify] 5 mg PO DAILY #14 tab 03/20/16 Citalopram [celEXA] 40 mg PO DAILY #30 tab 03/20/16 Insulin Detemir [Levemir] 30 units SC HS #30 vial 03/20/16 OXcarbazepine [Trileptal] 600 mg PO BID #20 tab 03/20/16 Pantoprazole [Protonix EC Tab] 40 mg PO DAILY #14 ect 03/20/16 ALPRAZolam [Xanax] 0.25 mg PO Q8 11/21/16 Aspirin/Dipyridamole [Aggrenox 1 tab PO DAILY 11/21/16 25-200 mg] Fenofibrate [Tricor] 1 tab PO DAILY 11/21/16 Metoprolol Tartrate [Lopressor] 25 mg PO DAILY 11/21/16 metFORMIN [glucOPHAGE] 500 mg PO BID 11/21/16 traZODone [Desyrel] 100 mg PO HS 11/21/16 Acetaminophen [Tylenol 325mg tab] 650 mg PO Q4 PRN tab 11/24/16 Albuterol/Ipratropium [Duoneb 3 3 ml INH RQ6 neb 11/24/16 mg/0.5 mg (3 ml) UD] Docusate [Colace] 100 mg PO BID cap 12/04/16 - Allergies Allergies/Adverse Reactions: Allergies Allergy/AdvReac Type Severity Reaction Status Date / Time FISH Allergy RASH Verified 03/19/17 17:55 shellfish derived Allergy RASH Verified 03/19/17 17:55 Review of Systems ROS Statement: Except As Marked, All Systems Reviewed And Found Negative Constitutional: Positive for: Fever, Weakness, Malaise, Other (fatigue) ENT: Positive for: Nose Discharge (rhinorrhea) Respiratory: Positive for: Cough, Shortness of Breath - Laboratory Results Result Diagrams: 03/19/17 18:40 03/19/17 18:40 - ECG O2 Sat by Pulse Oximetry: 98 (RA) Pulse Ox Interpretation: Normal Medical Decision Making Medical Decision Making: Time: --18:25 Impression: --Fever and cough Plan: --Blood type and screen --ECG --ED Urine Dip --Labs --Chest X-ray --Acetaminophen 975mg PO --Azithromycin 500mg IV --IV fluids --Tamiflu 75mg PO --Blood culture --Urine culture --Glucose, Blood, POC --Admit to Hospital --Urinalysis Reassess -- Scribe Attestation: Documented by Mikie Vazquez acting as a scribe for Hollie Sanchez MD. Provider Attestation: All medical record entries made by the Scribe were at my direction and personally dictated by me. I have reviewed the chart and agree that the record accurately reflects my personal performance of the history, physical exam, medical decision making, and the department course for this patient. I have also personally directed, reviewed, and agree with the discharge instructions and disposition. Disposition - Disposition
[2017-03-19] MEDS ORDERED: cefTRIAXone (Rocephin) 1 gm Inj ONE (19:29)
[2017-03-19 19:37] LABS: ALB/GLOB RATIO 1.4 (1.0-2.1); ALT/SGPT 24 U/L (21-72)
[2017-03-19 19:48] LABS: B-TYPE NATRIURETIC PEPTIDE 266 pg/ml (0-900)
[2017-03-19 20:21] LABS: BANDS 6 % (0-2); BASOPHIL 1 % (0-2); BLASTS 1 % (0-0); EOSINOPHIL 1 % (0-7); LYMPHOCYTE 4 % (20-50); MONOCYTE 7 % (0-10); NEUTROPHIL 80 % (42-75); TOTAL CELLS COUNTED 100
[2017-03-19 20:22] LABS: PLATELET ESTIMATE NORMAL (NORMAL)
[2017-03-20] MEDS: Albuterol-Ipratrop 3 mg / 0.5 (3 ml) UD INH SCH ×4 (00:59→19:03)
[2017-03-20 08:01] LABS: HEMOGLOBIN 13.7 g/dL (12.0-18.0); MEAN CELL VOLUME 84.7 fl (80.0-94.0); MEAN CORPUSCULAR HEMOGLOBIN 27.8 pg (27.0-31.0); MEAN CORPUSCULAR HGB CONC 32.8 g/dL (33.0-37.0); RBC 4.92 Mil/uL (4.40-5.90); RED CELL DISTRIBUTION WIDTH 14.7 % (11.5-14.5); WHITE BLOOD COUNT 18.5 K/uL (4.8-10.8)
[2017-03-20 08:12] LABS: ALB/GLOB RATIO 1.5 (1.0-2.1); ALBUMIN 4.1 g/dL (3.5-5.0); ALT/SGPT 14 U/L (21-72); AST/SGOT 10 U/L (17-59); BLOOD UREA NITROGEN 20 mg/dl (9-20); CALCIUM 9.3 mg/dL (8.4-10.2); GFR AFRICAN-AMERICAN > 60; GFR NON-AFRICAN AMERICAN > 60; HDL CHOLESTEROL 34 MG/DL (30-70); LDL CHOLESTEROL 70 mg/dL (0-129)
[2017-03-20] MEDS: Azithromycin 500 MG in Sodium Chloride 0.9% 250 ML IVPB SCH (09:00)
[2017-03-20] MEDS: Enoxaparin 40 mg Syringe SC SCH (09:24)
[2017-03-20] MEDS: Pantoprazole 40 mg EC Tab PO SCH (09:25)
[2017-03-20] MEDS: Aspirin-Dipyridamole 200-25 mg ER Cap PO SCH (09:25)
[2017-03-20 09:47] LABS: T4 6.38 ug/dl (5.5-11.0)
--- NOTE | 2017-03-20 10:30 | CARD ---
APPROVED REPORT EKG Measurement Heart [id number] ME [id number] [id number] <Conclusion> Normal sinus rhythm Left anterior fascicular block Left ventricular hypertrophy with QRS widening and repolarization abnormality Abnormal ECG
--- NOTE | 2017-03-20 12:49 | HP ---
CHIEF COMPLAINT AND HISTORY OF PRESENT ILLNESS: A 61-year-old male with known case of diabetes, hypertension, status post CVA, and history of hemiparesis who was in his usual state of health until recently when he is started having flu symptoms with fever and cough, so the patient was brought to Emergency Room, and was admitted for further management. REVIEW OF SYSTEMS: Positive for generalized malaise, fever, cough, and also chronic pain and chronic right sided weakness. Review of systems otherwise is negative for headache, dizziness, syncope, loss of consciousness, chest pain, nausea, vomiting, diarrhea, constipation, anemia, joint or extremity pain. Review of systems of all other organ system is unremarkable. PAST MEDICAL HISTORY: Significant for CVA with right hemiparesis, diabetes, hypertension, and cardiac arrhythmias. PAST SURGICAL HISTORY: Unremarkable. PERSONAL HISTORY: The patient is currently nonsmoker, nondrinker, and no substance abuse. MEDICATIONS: The patient is on multiple medications including Abilify, Celexa, Levemir, Trileptal, Protonix, Xanax, Aggrenox, TriCor, Lopressor, Glucophage, Desyrel, Tylenol, Duoneb and Colace. ALLERGIES: THE PATIENT IS ALLERGIC TO SHELLFISH. FAMILY HISTORY: Noncontributory. PHYSICAL EXAMINATION: GENERAL: A well-built and well-nourished 61-year-old male, in no acute distress. VITAL SIGNS: Temperature was up to 102.1, now 99, pulse of 100, respirations of 18, and blood pressure of 133/65. HEENT: Pupils are reactive to light. No JVD. No thyromegaly. No lymphadenopathy. No nystagmus. Normocephalic and atraumatic skull. HEART: S1 and S2, normal and regular. No significant murmur, gallop, or rub is heard. LUNGS: Exam shows good bilateral air exchange. No rales or rhonchi. ABDOMEN: Soft and nontender. No organomegaly. No fluid. Bowel sounds are present and normal. EXTREMITIES: No edema. No calf swelling. No tenderness. No acute ischemia. CENTRAL NERVOUS SYSTEM: The patient has chronic right-sided weakness. No sign of acute focal deficit. DIAGNOSTIC DATA: Available diagnostic data reviewed. WBC was up to 20,000, now it is 18.5 and hemoglobin, hematocrit and platelets are acceptable. PT and PTT are acceptable. Sodium of 142, potassium of 3.6, chloride of 101, bicarbonate of 22, BUN of 23, and creatinine of 1.1. Glucose is 239. SMA-12 is otherwise unremarkable. Flu test is negative. BNP level is 266. Chest x-ray did not reveal any focal deficit. EKG was unremarkable. ADMITTING IMPRESSION AND PLAN: Sepsis syndrome, type 2 diabetes with hyperglycemia, hypertension, and status post cerebrovascular accident with right hemiparesis. Plan as ordered. Care of plan was discussed with the patient. Kaz Xiong MD
--- NOTE | 2017-03-20 12:50 | RAD ---
HISTORY: Sepsis. COMPARISON: Comparison chest dated 11/21/2016 FINDINGS: LUNGS: Mild bibasilar atelectasis and or scarring changes right greater than left PLEURA: No significant pleural effusion identified, no pneumothorax apparent. CARDIOVASCULAR: Heart size is within range of normal. Aorta is slightly ectatic and uncoiled. OSSEOUS STRUCTURES: No significant abnormalities. VISUALIZED UPPER ABDOMEN: Normal. OTHER FINDINGS: None. IMPRESSION: Mild bibasilar atelectasis and or scarring changes right greater than left
[2017-03-20 16:48] LABS: SPERM URINE MOD /hpf; SQUAMOUS EPITHIAL 2 /hpf (0-5); URINE BACTERIA MOD (<OCC); URINE BILIRUBIN NEGATIVE (NEGATIVE); URINE BLOOD MODERATE (NEGATIVE); URINE CLARITY CLOUDY (Clear); URINE COLOR AMBER (YELLOW); URINE GLUCOSE (UA) >=500 mg/dL (Normal); URINE HYALINE CAST 0-2 /hpf (0-2); URINE LEUKOCYTE ESTERASE MOD Leu/uL (Negative); URINE NITRATE NEGATIVE (NEGATIVE); URINE PROTEIN 100 mg/dL (NEGATIVE); URINE UROBILINOGEN 0.2-1.0 mg/dL (0.2-1.0)
[2017-03-20] MEDS: Insulin Detemir 100 Units/ml Inj SC SCH (21:49)
[2017-03-21] MEDS: Albuterol-Ipratrop 3 mg / 0.5 (3 ml) UD INH SCH ×4 (00:59→20:00)
[2017-03-21 08:06] LABS: HEMOGLOBIN 12.6 g/dL (12.0-18.0); MEAN CELL VOLUME 83.8 fl (80.0-94.0); MEAN CORPUSCULAR HEMOGLOBIN 27.9 pg (27.0-31.0); MEAN CORPUSCULAR HGB CONC 33.3 g/dL (33.0-37.0); RBC 4.51 Mil/uL (4.40-5.90); RED CELL DISTRIBUTION WIDTH 14.6 % (11.5-14.5); WHITE BLOOD COUNT 11.1 K/uL (4.8-10.8)
[2017-03-21 08:16] LABS: ALB/GLOB RATIO 1.3 (1.0-2.1); ALBUMIN 3.8 g/dL (3.5-5.0); ALT/SGPT 16 U/L (21-72); AST/SGOT 12 U/L (17-59); BLOOD UREA NITROGEN 20 mg/dl (9-20); CALCIUM 9.4 mg/dL (8.4-10.2); GFR AFRICAN-AMERICAN > 60; GFR NON-AFRICAN AMERICAN > 60
--- NOTE | 2017-03-21 08:34 | PN ---
DATE: 03/21/2017 SUBJECTIVE: The patient is seen and examined. Interim events noted. The patient remains in Progressive Care Unit on telemetry monitoring. The patient feels okay. Denies any specific complaints. No chest pain and no shortness of breath. He is better overall. PHYSICAL EXAMINATION: GENERAL: The patient is in no acute distress. VITAL SIGNS: Stable. HEART: S1 and S2, normal and regular. LUNGS: Good bilateral air exchange. ABDOMEN: Nontender. No organomegaly. No fluid. Bowel sounds are present and normal. EXTREMITIES: No edema. No calf swelling. No tenderness. No acute ischemia. CENTRAL NERVOUS SYSTEM: Exam is essentially unchanged . DIAGNOSTIC DATA: Available diagnostic data reviewed. IMPRESSION AND PLAN: Overall, the patient's general medical condition is stable and improved. Plan as ordered. Kaz Xiong MD
[2017-03-21] MEDS: Azithromycin 500 MG in Sodium Chloride 0.9% 250 ML IVPB SCH (09:00)
[2017-03-21] MEDS: Aspirin-Dipyridamole 200-25 mg ER Cap PO SCH (09:30)
[2017-03-21] MEDS: Enoxaparin 40 mg Syringe SC SCH (09:31)
[2017-03-21] MEDS: Pantoprazole 40 mg EC Tab PO SCH (09:32)
[2017-03-21] MEDS: Insulin Detemir 100 Units/ml Inj SC SCH (21:10)
[2017-03-22] MEDS: Albuterol-Ipratrop 3 mg / 0.5 (3 ml) UD INH SCH ×3 (01:10→12:59)
[2017-03-22 06:02] LABS: ALB/GLOB RATIO 1.2 (1.0-2.1); ALBUMIN 3.7 g/dL (3.5-5.0); ALT/SGPT 17 U/L (21-72); AST/SGOT 9 U/L (17-59); BLOOD UREA NITROGEN 20 mg/dl (9-20); CALCIUM 9.3 mg/dL (8.4-10.2); GFR AFRICAN-AMERICAN > 60; GFR NON-AFRICAN AMERICAN > 60
[2017-03-22 06:03] LABS: HEMOGLOBIN 12.6 g/dL (12.0-18.0); MEAN CELL VOLUME 82.6 fl (80.0-94.0); MEAN CORPUSCULAR HEMOGLOBIN 28.3 pg (27.0-31.0); MEAN CORPUSCULAR HGB CONC 34.2 g/dL (33.0-37.0); RBC 4.45 Mil/uL (4.40-5.90); RED CELL DISTRIBUTION WIDTH 14.7 % (11.5-14.5); WHITE BLOOD COUNT 6.6 K/uL (4.8-10.8)
--- NOTE | 2017-03-22 08:57 | PQF GENQUE ---
This form is a permanent part of the medical record 03/22/17 Dr. Xiong, There is no ICD-10 code for Sepsis Syndrome. After workup please document the primary reason for admission. Admitted with flu like symptoms, Influenza negative. Urine CS no growth, Blood CS no growth for 48 hours, CXR: Mild bibasilar atelectasis and or scarring changes right greater than left. TEMP max 102.7, WBC 20.3 with a L shift and 6 % BANDS. Treated with Rocephin and Zithromax Clarification of your documentation is requested to better reflect the severity of illness and intensity of treatment of your patient. Indicators present [] Specify: [] [] Specify: [] [] Specify: [] [] Specify: [] Location in the medical record that reflects the above clinical findings: [] Treatment Provided: [] PHYSICIAN'S RESPONSE Based on your medical judgment of the clinical indicators outlined above please clarify the following: [] Practitioner response [] If unable to determine, please check the box, sign and date. Present On Admission (POA) Indicator: [] Present at the time of admission [] Not present at the time of admission [] Clinically Undetermined In responding to this query, please exercise your independent professional judgment. The fact that a question is asked does not imply that any particular answer is desired or expected. Thank you for your clarification on this documentation. If you have any questions please call:[phone] * Thank you, Roxana Katz RN [facility]
[2017-03-22] MEDS: Azithromycin 500 MG in Sodium Chloride 0.9% 250 ML IVPB SCH (09:56)
[2017-03-22] MEDS: Aspirin-Dipyridamole 200-25 mg ER Cap PO SCH (09:58)
[2017-03-22] MEDS: Pantoprazole 40 mg EC Tab PO SCH (09:59)
--- NOTE | 2017-03-22 10:37 | PN ---
DATE: 03/22/2017 SUBJECTIVE: The patient is seen and examined. Interim events noted. Consults noted and appreciated. The patient remains in Progressive Care Unit on Telemetry monitoring. The patient feels better. No chest pain, no shortness of breath, and no urinary symptoms. PHYSICAL EXAMINATION: GENERAL: The patient is in no acute distress. VITAL SIGNS: Stable. HEART: S1 and S2, normal and regular. LUNGS: Good bilateral air exchange. ABDOMEN: Soft and nontender. EXTREMITIES: No edema, no calf swelling, and no tenderness. No acute ischemia. CENTRAL NERVOUS SYSTEM: Essentially unchanged. DIAGNOSTIC DATA: Available diagnostic data reviewed. Telemetry monitoring does not show significant arrhythmias. ASSESSMENT AND PLAN: Overall, the patient's general medical condition is stable and improving. Plan as ordered. Kaz Xiong MD
[2017-03-22] MEDS: Enoxaparin 40 mg Syringe SC SCH (15:27)
[2017-03-22] MEDS: Insulin Detemir 100 Units/ml Inj SC SCH (23:12)
[2017-03-23] MEDS: Albuterol-Ipratrop 3 mg / 0.5 (3 ml) UD INH SCH ×2 (01:00→20:31)
[2017-03-23] MEDS: Pantoprazole 40 mg EC Tab PO SCH (08:54)
[2017-03-23] MEDS: Enoxaparin 40 mg Syringe SC SCH (08:54)
[2017-03-23] MEDS: Aspirin-Dipyridamole 200-25 mg ER Cap PO SCH (08:55)
[2017-03-23] MEDS: Azithromycin 500 MG in Sodium Chloride 0.9% 250 ML IVPB SCH (10:28)
--- NOTE | 2017-03-23 12:05 | PN ---
DATE: 03/23/2017 SUBJECTIVE: The patient is seen and examined. Interim events noted. The patient remains in regular medical floor. The patient feels better. No chest pain, no shortness of breath. Coughing improved. No fever. PHYSICAL EXAMINATION: GENERAL: The patient is in no acute distress. VITAL SIGNS: Stable. HEART: S1 and S2, normal and regular. LUNGS: Good bilateral air exchange. ABDOMEN: Soft and nontender. EXTREMITIES: No edema, no calf swelling, no tenderness. No acute ischemia. CENTRAL NERVOUS SYSTEM: Essentially unchanged and the patient is status post CVA with hemiparesis. DIAGNOSTIC DATA: Available diagnostic data reviewed. PLAN: Overall, the patient's general medical condition is stable and improving. Plan as ordered. Kaz Xiong MD
[2017-03-23] MEDS: Insulin Detemir 100 Units/ml Inj SC SCH (22:55)
[2017-03-24] MEDS: Albuterol-Ipratrop 3 mg / 0.5 (3 ml) UD INH SCH ×3 (01:02→13:06)
[2017-03-24] MEDS: Aspirin-Dipyridamole 200-25 mg ER Cap PO SCH (08:57)
[2017-03-24] MEDS: Enoxaparin 40 mg Syringe SC SCH (08:57)
[2017-03-24] MEDS: Pantoprazole 40 mg EC Tab PO SCH (08:57)
[2017-03-24] MEDS: Azithromycin 500 MG in Sodium Chloride 0.9% 250 ML IVPB SCH (10:16)
--- NOTE | 2017-03-24 13:03 | PN ---
DATE: 03/24/2017 SUBJECTIVE: The patient is seen and examined. Interim events noted. The patient remains in regular medical floor. He feels better. Coughing, chest pain and shortness of breath improved. He complains of generalized weakness. PHYSICAL EXAMINATION: GENERAL: The patient is in no acute distress. VITAL SIGNS: Stable. HEART: S1 and S2, normal and regular. LUNGS: Good bilateral air exchange. ABDOMEN: Soft and nontender. EXTREMITIES: No edema, no calf swelling, and no tenderness. No acute ischemia. CENTRAL NERVOUS SYSTEM: Exam is essentially unchanged. DIAGNOSTIC DATA: Available diagnostic data reviewed. Accu-Cheks 182. Blood cultures negative. ASSESSMENT AND PLAN: Overall, the patient is clinically stable. Physical therapy evaluation noted and appreciated. The patient is for Subacute Rehab or Transitional Care Unit. The patient refuses Subacute Rehab, agreeable to Transitional Care Unit. Plan as ordered. Kaz Xiong MD
[2017-03-24 16:17] VITALS: BP 128/77; PULSE 77; RESP 20; TEMP 97.8; O2SAT 95
== END 2017-03-24 18:30 | DRG 901 ==
LOC: H.ER 17:52 → H.ERHOLD 18:24 → H.TEL 21:21 → H.MEDSURG1 03-22 15:55
PROVIDERS: ADMIT Internal Medicine; ATTEND Internal Medicine
DX: A41.9 Sepsis, unspecified organism (principal); E11.65 Type 2 diabetes mellitus with hyperglycemia; I10 Essential (primary) hypertension; I69.351 Hemiplegia and hemiparesis following cerebral infarction affecting right dominant side; Z91.013 Allergy to seafood

== ENCOUNTER 2017-03-24 17:32 | Inpatient (IN) | payer MEDICAID ==
[2017-03-24 19:53] VITALS: BMI 25.1
[2017-03-24] MEDS ORDERED: Tuberculin 5 Units/0.1 ml Inj ID ONE (19:59)
[2017-03-24 21:15] VITALS: RESP 20
[2017-03-24] MEDS: Insulin Detemir 100 Units/ml Inj SC SCH (21:52)
[2017-03-25] MEDS: Albuterol-Ipratrop 3 mg / 0.5 (3 ml) UD INH SCH ×4 (02:15→19:26)
[2017-03-25] MEDS: Azithromycin 500 MG in Sodium Chloride 0.9% 250 ML IVPB SCH (06:39)
[2017-03-25] MEDS: Aspirin-Dipyridamole 200-25 mg ER Cap PO SCH (08:17)
[2017-03-25] MEDS: Enoxaparin 40 mg Syringe SC SCH (08:18)
[2017-03-25] MEDS: Pantoprazole 40 mg EC Tab PO SCH (08:19)
[2017-03-25 09:06] LABS: HEMOGLOBIN 13.1 g/dL (12.0-18.0); MEAN CELL VOLUME 82.8 fl (80.0-94.0); MEAN CORPUSCULAR HEMOGLOBIN 28.2 pg (27.0-31.0); MEAN CORPUSCULAR HGB CONC 34.1 g/dL (33.0-37.0); RBC 4.64 Mil/uL (4.40-5.90); RED CELL DISTRIBUTION WIDTH 14.2 % (11.5-14.5); WHITE BLOOD COUNT 6.4 K/uL (4.8-10.8)
[2017-03-25 09:23] LABS: BLOOD UREA NITROGEN 20 mg/dl (9-20); CALCIUM 9.2 mg/dL (8.4-10.2); GFR AFRICAN-AMERICAN > 60; GFR NON-AFRICAN AMERICAN > 60
--- NOTE | 2017-03-25 12:56 | CP.PCM.HP ---
<Anny Castellano - Last Filed: 03/25/17 13:10> History of Present Illness - History of Present Illness History of Present Illness: 61 YO M w/ h/o CVA and right side hemiplegia was admitted in med/surg for SOB, rhinorrhea, cough and flu like symptoms. Patient was deconditioned and is transferred to TCU for further treatment and rehabilitation. Present on Admission - Present on Admission Any Indicators Present on Admission: No Past Patient History - Past Medical History & Family History Past Medical History?: Yes - Past Social History Smoking Status: Former Smoker - CARDIAC Hx Cardiac Disorders: Yes Hx Cardia Arrhythmia: Yes Hx Hypertension: Yes - PULMONARY Hx Respiratory Disorders: Yes Hx Pneumonia: Yes - NEUROLOGICAL Hx Neurological Disorder: Yes HX Cerebrovascular Accident: Yes - HEENT Hx HEENT Problems: Yes Hx Difficulty Chewing: Yes - RENAL Hx Chronic Kidney Disease: No - ENDOCRINE/METABOLIC Hx Endocrine Disorders: Yes Hx Diabetes Mellitus Type 2: Yes - HEMATOLOGICAL/ONCOLOGICAL Hx Blood Disorders: No Hx AIDS: No Hx Human Immunodeficiency Virus (HIV): No - INTEGUMENTARY Hx Dermatological Problems: No - MUSCULOSKELETAL/RHEUMATOLOGICAL Hx Musculoskeletal Disorders: Yes Hx Falls: Yes Other/Comment: Right sided paralysis - GASTROINTESTINAL Hx Gastrointestinal Disorders: Yes HX Swallowing Problems: Yes - GENITOURINARY/GYNECOLOGICAL Hx Genitourinary Disorders: Yes Hx Urinary Tract Infection: Yes - PSYCHIATRIC Hx Psychophysiologic Disorder: No Hx Anxiety: Yes Hx Substance Use: No - SURGICAL HISTORY Hx Surgeries: Yes Other/Comment: Hx G Tube removed s/p 5 years ago - ANESTHESIA Hx Anesthesia: Yes Hx Anesthesia Reactions: No Meds Allergies/Adverse Reactions: Allergies Allergy/AdvReac Type Severity Reaction Status Date / Time FISH Allergy RASH Verified 03/19/17 17:55 shellfish derived Allergy RASH Verified 03/19/17 17:55 Physical Exam - Constitutional Appears: No Acute Distress - Head Exam Head Exam: NORMAL INSPECTION - Respiratory Exam Respiratory Exam: Clear to Auscultation Bilateral, NORMAL BREATHING PATTERN. absent: Rhonchi, Wheezes - Cardiovascular Exam Cardiovascular Exam: REGULAR RHYTHM, +S1, +S2 - GI/Abdominal Exam GI & Abdominal Exam: Normal Bowel Sounds, Soft. absent: Tenderness - Neurological Exam Neurological exam: Alert, Oriented x3 Additional comments: chronic right sided weakness - Skin Skin Exam: Normal Color, Warm Results - Vital Signs Recent Vital Signs: Last Vital Signs Temp 97.5 F L 03/25/17 08:18 Pulse 73 03/25/17 09:42 Resp 20 03/25/17 08:18 BP 120/65 03/25/17 09:42 Pulse Ox 98 03/25/17 09:42 - Labs Result Diagrams: 03/25/17 08:43 03/25/17 08:43 Labs: Laboratory Results - last 24 hr 03/24/17 03/25/17 03/25/17 20:43 06:08 08:43 WBC 6.4 RBC 4.64 Hgb 13.1 Hct 38.4 MCV 82.8 MCH 28.2 MCHC 34.1 RDW 14.2 Plt Count 221 Sodium Potassium Chloride Carbon Dioxide Anion Gap BUN Creatinine Est GFR ( Amer) Est GFR (Non-Af Amer) POC Glucose (mg/dL) 206 H 136 H Random Glucose Calcium 03/25/17 03/25/17 08:43 10:40 WBC RBC Hgb Hct MCV MCH MCHC RDW Plt Count Sodium 148 Potassium 3.8 Chloride 110 H Carbon Dioxide 25 Anion Gap 17 BUN 20 Creatinine 0.8 Est GFR ( Amer) > 60 Est GFR (Non-Af Amer) > 60 POC Glucose (mg/dL) 128 H Random Glucose 141 H Calcium 9.2 Assessment & Plan - Assessment and Plan (Free Text) Assessment: 1) Community acquired pneumonia - Azithromycin - Ceftriaxone 2) HTN - Metroprolol 3) Hyperlipidemia Tricor 4) DM2 - Metformin - Levimir 30 units HS 5) DVT prophylaxis -Lovenox <Kaz Xiong K - Last Filed: 03/26/17 16:49> Results - Vital Signs Recent Vital Signs: Last Vital Signs Temp 97.7 F 03/26/17 16:27 Pulse 84 03/26/17 16:27 Resp 20 03/26/17 16:27 BP 117/56 L 03/26/17 16:27 Pulse Ox 95 03/26/17 16:27 - Labs Result Diagrams: 03/25/17 08:43 03/25/17 08:43 Labs: Laboratory Results - last 24 hr 03/25/17 03/26/17 03/26/17 20:43 06:17 10:52 POC Glucose (mg/dL) 257 H 128 H 132 H 03/26/17 15:15 POC Glucose (mg/dL) 105
[2017-03-25] MEDS: Insulin Detemir 100 Units/ml Inj SC SCH (21:38)
[2017-03-26] MEDS: Albuterol-Ipratrop 3 mg / 0.5 (3 ml) UD INH SCH ×4 (01:02→20:06)
[2017-03-26] MEDS: Azithromycin 500 MG in Sodium Chloride 0.9% 250 ML IVPB SCH (04:58)
[2017-03-26] MEDS: Aspirin-Dipyridamole 200-25 mg ER Cap PO SCH (09:24)
[2017-03-26] MEDS: Pantoprazole 40 mg EC Tab PO SCH (09:24)
[2017-03-26] MEDS: Enoxaparin 40 mg Syringe SC SCH (09:27)
--- NOTE | 2017-03-26 10:35 | PN ---
DATE: 03/26/2017 SUBJECTIVE: The patient is seen and examined. Interim events noted. The patient remains in regular floor of Transitional Care Unit. Feels okay. Denies any chest pain. No shortness of breath or urinary symptoms. PHYSICAL EXAMINATION: GENERAL: The patient is in no acute distress. VITAL SIGNS: Stable. HEART: S1 and S2, normal and regular. LUNGS: Good bilateral air exchange. ABDOMEN: Soft and nontender. EXTREMITIES: No edema. No calf swelling. No tenderness. No acute ischemia. PREDATORY GAME HUNTER: Essentially unchanged. The patient Is status post . DIAGNOSTIC DATA: Available diagnostic data reviewed. PLAN: Overall, the patient's general medical condition is stable. Plan as ordered. Kaz Xiong MD
[2017-03-26] MEDS: Insulin Detemir 100 Units/ml Inj SC SCH (21:28)
[2017-03-27] MEDS: Albuterol-Ipratrop 3 mg / 0.5 (3 ml) UD INH SCH ×4 (01:00→19:26)
[2017-03-27] MEDS: Azithromycin 500 MG in Sodium Chloride 0.9% 250 ML IVPB SCH (05:33)
[2017-03-27] MEDS: Enoxaparin 40 mg Syringe SC SCH (08:35)
[2017-03-27] MEDS: Aspirin-Dipyridamole 200-25 mg ER Cap PO SCH (08:36)
[2017-03-27] MEDS: Pantoprazole 40 mg EC Tab PO SCH (08:37)
--- NOTE | 2017-03-27 11:15 | PN ---
DATE: 03/27/2017 SUBJECTIVE: The patient is seen and examined. Interim events noted. The patient remains in Transitional Care Unit. Feels better. Denies any chest pain or shortness of breath. PHYSICAL EXAMINATION: GENERAL: The patient is in no acute distress. VITAL SIGNS: Stable. HEART: S1 and S2, normal and regular. LUNGS: Good bilateral air exchange. ABDOMEN: Soft and nontender. EXTREMITIES: No edema. No calf swelling. No tenderness. No acute ischemia. CENTRAL NERVOUS SYSTEM: Exam is essentially unchanged. DIAGNOSTIC DATA: Available diagnostic data reviewed. ASSESSMENT AND PLAN: Overall, the patient's general medical condition is stable. Plan as ordered. Kaz Xiong MD
[2017-03-27] MEDS: Insulin Detemir 100 Units/ml Inj SC SCH (21:49)
[2017-03-28] MEDS: Albuterol-Ipratrop 3 mg / 0.5 (3 ml) UD INH SCH ×4 (01:05→20:07)
[2017-03-28] MEDS: Azithromycin 500 MG in Sodium Chloride 0.9% 250 ML IVPB SCH (05:30)
[2017-03-28] MEDS: Enoxaparin 40 mg Syringe SC SCH (08:29)
[2017-03-28] MEDS: Pantoprazole 40 mg EC Tab PO SCH (08:31)
[2017-03-28] MEDS: Aspirin-Dipyridamole 200-25 mg ER Cap PO SCH (08:31)
--- NOTE | 2017-03-28 10:51 | PN ---
DATE: 03/28/2017 SUBJECTIVE: The patient is seen and examined. Interim events noted. The patient remains in Transitional Care Unit. The patient is on IV antibiotics. The patient feels better, wants to go home. No chest pain. No shortness of breath. No coughing. PHYSICAL EXAMINATION: GENERAL: The patient is in no acute distress. VITAL SIGNS: Stable. HEART: S1 and S2, normal and regular. LUNGS: Good bilateral air exchange. ABDOMEN: Soft and nontender. EXTREMITIES: No edema. No calf swelling. No tenderness. No acute ischemia. CENTRAL NERVOUS SYSTEM: Essentially unchanged. DIAGNOSTIC DATA: Available diagnostic data reviewed. PLAN: Overall, the patient is clinically stable and improving. Plan as ordered. Kaz Xiong MD
[2017-03-28] MEDS: Insulin Detemir 100 Units/ml Inj SC SCH (21:18)
[2017-03-29] MEDS: Albuterol-Ipratrop 3 mg / 0.5 (3 ml) UD INH SCH ×3 (01:04→13:42)
[2017-03-29] MEDS: Azithromycin 500 MG in Sodium Chloride 0.9% 250 ML IVPB SCH (05:01)
[2017-03-29 08:01] VITALS: BP 131/64; PULSE 79; TEMP 97.7; O2SAT 99
[2017-03-29] MEDS: Aspirin-Dipyridamole 200-25 mg ER Cap PO SCH (08:14)
[2017-03-29] MEDS: Pantoprazole 40 mg EC Tab PO SCH (08:15)
--- NOTE | 2017-03-29 11:45 | PN ---
DATE: 03/29/2017 SUBJECTIVE: The patient seen and examined. Interim events noted. Consults noted and appreciated. The patient remained in Transitional Care Unit. The patient feels okay. No chest pain. No shortness of breath. No coughing. PHYSICAL EXAMINATION: GENERAL: The patient is in no acute distress. VITAL SIGNS: Stable. HEART: S1, S2, normal, regular. LUNGS: Good bilateral air exchange. ABDOMEN: Soft, nontender. EXTREMITIES: No edema, no calf swelling. No tenderness. No acute ischemia. CENTRAL NERVOUS SYSTEM: Exam is essentially unchanged. DIAGNOSTIC DATA: Available diagnostic data reviewed. ASSESSMENT AND PLAN: Overall, the patient is medically stable and discharge the patient home. The patient will be followed up by primary care physician. Plan as ordered. Case and plan discussed with the patient. Kaz Xiong MD
--- NOTE | 2017-03-30 00:05 | DS ---
HISTORY OF PRESENT ILLNESS: This is a 61-year-old male with history of CVA with right hemiparesis, who was admitted to medical floor with pneumonia and was treated with IV antibiotics. The patient was stabilized at medical floor and then was transferred to Transitional Care Unit for completion of treatment and rehab as the patient did not want to go to subacute rehabilitation. The patient was admitted, rehabilitations were provided, antibiotics were continued. The patient completed course of antibiotics, improved clinically and became medically stable and is being discharged to home today with the home care and family support. Plan as ordered. Case and plan discussed with the patient at length. Kaz Xiong MD
== END 2017-03-29 14:30 | disposition home or self-care (01) | DRG 90 ==
LOC: H.TCU 19:59
PROVIDERS: ADMIT Internal Medicine; ATTEND Internal Medicine
PROC: 3E03329 Introduction of Other Anti-infective into Peripheral Vein, Percutaneous Approach (ICD-10-PCS; 2017-03-24)
PROC: 3E0F7GC Introduction of Other Therapeutic Substance into Respiratory Tract, Via Natural or Artificial Opening (ICD-10-PCS; principal; 2017-03-25)
PROC: F07M6FZ Therapeutic Exercise Treatment of Musculoskeletal System - Whole Body using Assistive, Adaptive, Supportive or Protective Equipment (ICD-10-PCS; 2017-03-25)
PROC: F08Z4FZ Home Management Treatment using Assistive, Adaptive, Supportive or Protective Equipment (ICD-10-PCS; 2017-03-25)
DX: J18.9 Pneumonia, unspecified organism (principal); I69.351 Hemiplegia and hemiparesis following cerebral infarction affecting right dominant side; E11.9 Type 2 diabetes mellitus without complications; F41.9 Anxiety disorder, unspecified; Z87.01 Personal history of pneumonia (recurrent); Z87.440 Personal history of urinary (tract) infections; Z87.891 Personal history of nicotine dependence; E78.5 Hyperlipidemia, unspecified; I10 Essential (primary) hypertension